=== PATIENT | male | born 1940 | race Caucasian/White ===

== ENCOUNTER 2021-04-27 04:10 | Emergency (ER) | payer MEDICARE, BC ==
[2021-04-27 05:02] LABS: Hematocrit 43.6 % (42-50); Hemoglobin 14.7 gm/dl (12.5-18.0); Mean Cell Volume 95.8 fl (78-100); Mean Corpuscular Hemoglobin 32.3 pg (26-32); Mean Corpuscular Hgb Concent. 33.7 g/dl (32-36); Mean Platelet Volume 10.4 fl (7.5-11.0); Platelet Count 295 K/mm3 (150-450); Red Blood Count 4.55 M/mm3 (4.1-5.6); White Blood Count 5.5 K/mm3 (4.0-10.5)
[2021-04-27 05:09] LABS: Appearance SLIGHTLY CLOUDY (CLEAR); Bilirubin NEGATIVE (NEGATIVE); Blood NEGATIVE Ery/ul (0-5); Glucose NEGATIVE (NEGATIVE); Ketones NEGATIVE (NEGATIVE); Leukocyte Esterase NEGATIVE (NEGATIVE); Mucus SLIGHT /HPF (NEGATIVE); Nitrite NEGATIVE (NEGATIVE); Protein,Urine Dip NEGATIVE (Negative); Specific Gravity 1.019 (1.005-1.025); Urobilinogen NEGATIVE mg/dL (0-1)
[2021-04-27 05:25] LABS: Amphetamine,Urine NEGATIVE (NEGATIVE); Barbiturate,Urine NEGATIVE (NEGATIVE); Benzodiazepine,Urine NEGATIVE (NEGATIVE); Cocaine,Urine NEGATIVE (NEGATIVE); Methadone,Urine NEGATIVE (NEGATIVE); Opiate,Urine NEGATIVE (NEGATIVE); PCP,Urine NEGATIVE (NEGATIVE); THC,Urine NEGATIVE (NEGATIVE)
--- NOTE | 2021-04-27 05:29 | ERPHSYRPT ---
- History of Present Illness Time Seen by Provider: 04/27/21 04:20 Source: patient Patient Subjective Stated Complaint: "I feel like I'm going a mile a minute." Triage Nursing Assessment: 80 y/o white male with only reported PMH of nasal polyps. He reported that he tested positive for COVID 19 on 04/22/21. He was prescribed amoxicillin and hydroxyzine. He has been taking the medications daily. The only presenting symptoms when he was tested was "I was going like a race horse." He denied headache, dizziness, visual disturbances, shorntess of breath, chest pain, palpitations, abdominal pain, indegestion, N/V/D, constipation, dysuria, hematuria, hematochezia. The patient's only complaint at this time is that he cannot calm down and go to sleep. Pupils 4mm bilateral with brisk reaction to light. Oral mucosa pink/moist without ulcerations or lesions. neck supple without JVD/lymphadenopathy. Symmetrical chest expansion. heart tones S1/S2 RRR without extra sounds. lungs vesicular with adequate airflow and no adventitious sounds. Abdomen soft non-distended, non-surgical, and without peritoneal signs. Bowel sounds present in all quadrants. No palpable organomegaly/pulsatile masses. Peripheral pulses +3 bilateral. No noted dependent edema. gait steady without complications. he is on room air and does not use nor has he required supplemental oxygen during the course of his treatment for COVID. Physician History: Patient is a 80-year-old male presents to emergency department for evaluation of feeling anxious and jittery. Patient states he cannot sleep. Patient is not sure why. Patient is currently on amoxicillin and hydroxyzine. These 2 medications were prescribed to patient on April 22 after he was tested positive for Covid. Since then patient has felt jittery and anxious. No chest pain or shortness of breath. No nausea vomiting or diaphoresis. Symptoms are mild to moderate in intensity. No specific worsening improving factors. Patient voices no other complaints concerns at this time. Timing/Duration: today Severity: mild Modifying Factors: Improves With: nothing Associated Symptoms: denies symptoms, No nausea, No vomiting, No shortness of breath, No diaphoresis, No chest pain, No fever, No headaches, No loss of appetite, No syncope, No seizure Allergies/Adverse Reactions: No Known Drug Allergies Allergy (Unverified 04/27/21 04:19) Home Medications: Amoxicillin 1,000 mg PO DAILY 04/27/21 [History] hydrOXYzine HCL [Hydroxyzine HCl] 10 mg PO Q8H PRN 04/27/21 [History] Hx Tetanus, Diphtheria Vaccination/Date Given: No Hx Influenza Vaccination/Date Given: No Travel Risk - International Travel Have you traveled outside of the country in past 3 weeks: No - Coronavirus Screening Are you exhibiting any of the following symptoms?: No Close contact with a COVID-19 positive Pt in past 14-21 Days: No - Vaccine Status Have you recieved a Covid-19 vaccination: No - Review of Systems Constitutional: No Symptoms, No Fever, No Chills Eyes: No Symptoms Ears, Nose, & Throat: No Symptoms Respiratory: No Symptoms, No Cough, No Dyspnea Cardiac: No Symptoms, No Chest Pain, No Edema, No Syncope Abdominal/Gastrointestinal: No Symptoms, No Abdominal Pain, No Nausea, No Vomiting, No Diarrhea Genitourinary Symptoms: No Symptoms, No Dysuria Musculoskeletal: No Symptoms, No Back Pain, No Neck Pain Skin: No Symptoms, No Rash Neurological: No Symptoms, No Dizziness, No Focal Weakness, No Sensory Changes Psychological: No Symptoms Endocrine: No Symptoms Hematologic/Lymphatic: No Symptoms Immunological/Allergic: No Symptoms All Other Systems: Reviewed and Negative - Past Medical History Pertinent Past Medical History: No - Past Surgical History Past Surgical History: Yes Other Surgical History: Nasal polyp removal - Social History Smoking Status: Current every day smoker Exposure to second hand smoke: No Drug Use: none Patient Lives Alone: No - Nursing Vital Signs Nursing Vital Signs: Initial Vital Signs Temperature 97.4 F 04/27/21 04:11 Pulse Rate 64 04/27/21 04:11 Respiratory Rate 18 04/27/21 04:11 Blood Pressure 158/89 04/27/21 04:11 O2 Sat by Pulse Oximetry 98 04/27/21 04:11 Pain Scale Pain Intensity 0 - Physical Exam General Appearance: no apparent distress, alert Eye Exam: PERRL/EOMI, eyes nml inspection Ears, Nose, Throat Exam: normal ENT inspection, TMs normal, pharynx normal, moist mucous membranes Neck Exam: normal inspection, non-tender, supple, full range of motion Respiratory Exam: normal breath sounds, lungs clear, airway intact, No respiratory distress Cardiovascular Exam: regular rate/rhythm, normal heart sounds, normal peripheral pulses Gastrointestinal/Abdomen Exam: soft, normal bowel sounds, No tenderness, No mass Back Exam: normal inspection, normal range of motion, No CVA tenderness, No vertebral tenderness Extremity Exam: normal inspection, normal range of motion, pelvis stable Neurologic Exam: alert, oriented x 3, cooperative, normal mood/affect, nml cerebellar function, nml station & gait, sensation nml, No motor deficits Skin Exam: normal color, warm, dry, No rash Lymphatic Exam: No adenopathy SpO2 Interpretation: normal SpO2: 96 O2 Delivery: Room Air - Course Nursing assessment & vital signs reviewed: Yes EKG Interpreted by Me: RATE (61), Sinus Rhythm, NORMAL AXIS, NORMAL INTERVALS - Radiology Exams Chest X-ray Interpretation: Interpreted by me (Bibasilar atelectasis. No infiltrate or consolidation. Otherwise clear lung harris. Bony thorax intact. Normal cardiac silhouette.) Ordered Tests: Active Orders 24 hr Category Date Time Status Communications Field Technician STAT Care 04/27/21 04:47 Active Clean Catch Urine Specimen STAT Care 04/27/21 04:55 Active EKG-ER Only STAT Care 04/27/21 04:45 Active IV Insertion STAT Care 04/27/21 04:45 Active CHEST 1 VIEW (PORTABLE) Stat Exams 04/27/21 05:04 Ordered CBC W DIFF Stat Lab 04/27/21 04:45 Completed CMP Stat Lab 04/27/21 04:45 Received Manual Differential NC Stat Lab 04/27/21 04:45 Completed TROPONIN Q3H Lab 04/27/21 04:45 Completed TROPONIN Q3H Lab 04/27/21 08:00 Ordered TROPONIN Q3H Lab 04/27/21 11:00 Ordered TROPONIN Q3H Lab 04/27/21 14:00 Ordered TROPONIN Q3H Lab 04/27/21 17:00 Ordered TROPONIN Q3H Lab 04/27/21 20:00 Ordered TROPONIN Q3H Lab 04/27/21 23:00 Ordered TSH, 3RD Generation Stat Lab 04/27/21 04:45 Received UA W/RFX UR CULTURE Stat Lab 04/27/21 04:50 Completed Urine Triage Profile Stat Lab 04/27/21 04:55 Completed Lab/Rad Data: Laboratory Result Diagrams 04/27/21 04:45 04/27/21 04:45 Laboratory Results 04/27/21 04/27/21 04/27/21 Range/Units 04:55 04:50 04:45 WBC (4.0-10.5) K/mm3 RBC (4.1-5.6) M/mm3 Hgb (12.5-18.0) gm/dl Hct (42-50) % MCV (78-100) fl MCH (26-32) pg MCHC (32-36) g/dl RDW (11.5-14.0) % Plt Count (150-450) K/mm3 MPV (7.5-11.0) fl Sodium (137-145) mmol/L Potassium (3.5-5.1) mmol/L Chloride (98-107) mmol/L Carbon Dioxide (22-30) mmol/L Anion Gap (5-15) MEQ/L BUN (9-20) mg/dL Creatinine (0.66-1.25) mg/dL Estimated GFR ML/MIN Glucose (74-106) mg/dL Calcium (8.4-10.2) mg/dL Total Bilirubin (0.2-1.3) mg/dL AST (17-59) U/L ALT (0-50) U/L Alkaline Phosphatase (38-126) U/L Troponin I < 0.012 (0.000-0.034) ng/mL Serum Total Protein (6.3-8.2) g/dL Albumin (3.5-5.0) g/dL TSH 3rd Generation (0.47-4.68) mIU/L Urine Color YELLOW (YELLOW) Urine Appearance SLIGHTLY CLOUDY (CLEAR) Urine pH 6.0 (5-6) Ur Specific [place] 1.019 (1.005-1.025) Urine Protein NEGATIVE (Negative) Urine Ketones NEGATIVE (NEGATIVE) Urine Blood NEGATIVE (0-5) Kana/ul Urine Nitrite NEGATIVE (NEGATIVE) Urine Bilirubin NEGATIVE (NEGATIVE) Urine Urobilinogen NEGATIVE (0-1) mg/dL Ur Leukocyte Esterase NEGATIVE (NEGATIVE) Urine WBC (Auto) 3-5 (0-5) /HPF Urine RBC (Auto) 16-25 (0-2) /HPF Calcium Oxalate Crystal 11-25 (NEGATIVE) /HPF Urine Mucus (Auto) SLIGHT (NEGATIVE) /HPF Urine Culture Reflexed NO (NO) Urine Glucose NEGATIVE (NEGATIVE) mg/dL Urine Opiates Level NEGATIVE (NEGATIVE) Ur Methadone NEGATIVE (NEGATIVE) Urine Barbiturates NEGATIVE (NEGATIVE) Ur Phencyclidine (PCP) NEGATIVE (NEGATIVE) Urine Amphetamine NEGATIVE (NEGATIVE) U Benzodiazepine Level NEGATIVE (NEGATIVE) Urine Cocaine NEGATIVE (NEGATIVE) Urine Marijuana (THC) NEGATIVE (NEGATIVE) 04/27/21 04/27/21 Range/Units 04:45 04:45 WBC 5.5 (4.0-10.5) K/mm3 RBC 4.55 (4.1-5.6) M/mm3 Hgb 14.7 (12.5-18.0) gm/dl Hct 43.6 (42-50) % MCV 95.8 (78-100) fl MCH 32.3 H (26-32) pg MCHC 33.7 (32-36) g/dl RDW 13.0 (11.5-14.0) % Plt Count 295 (150-450) K/mm3 MPV 10.4 (7.5-11.0) fl Sodium 142 (137-145) mmol/L Potassium 4.2 (3.5-5.1) mmol/L Chloride 104 (98-107) mmol/L Carbon Dioxide 31 H (22-30) mmol/L Anion Gap 12.5 (5-15) MEQ/L BUN 21 H (9-20) mg/dL Creatinine 0.68 (0.66-1.25) mg/dL Estimated GFR > 60.0 ML/MIN Glucose 103 (74-106) mg/dL Calcium 9.0 (8.4-10.2) mg/dL Total Bilirubin 0.60 (0.2-1.3) mg/dL AST 18 (17-59) U/L ALT 23 (0-50) U/L Alkaline Phosphatase 74 (38-126) U/L Troponin I (0.000-0.034) ng/mL Serum Total Protein 7.2 (6.3-8.2) g/dL Albumin 4.1 (3.5-5.0) g/dL TSH 3rd Generation 1.700 (0.47-4.68) mIU/L Urine Color (YELLOW) Urine Appearance (CLEAR) Urine pH (5-6) Ur Specific [place] (1.005-1.025) Urine Protein (Negative) Urine Ketones (NEGATIVE) Urine Blood (0-5) Kana/ul Urine Nitrite (NEGATIVE) Urine Bilirubin (NEGATIVE) Urine Urobilinogen (0-1) mg/dL Ur Leukocyte Esterase (NEGATIVE) Urine WBC (Auto) (0-5) /HPF Urine RBC (Auto) (0-2) /HPF Calcium Oxalate Crystal (NEGATIVE) /HPF Urine Mucus (Auto) (NEGATIVE) /HPF Urine Culture Reflexed (NO) Urine Glucose (NEGATIVE) mg/dL Urine Opiates Level (NEGATIVE) Ur Methadone (NEGATIVE) Urine Barbiturates (NEGATIVE) Ur Phencyclidine (PCP) (NEGATIVE) Urine Amphetamine (NEGATIVE) U Benzodiazepine Level (NEGATIVE) Urine Cocaine (NEGATIVE) Urine Marijuana (THC) (NEGATIVE) - Progress Progress: improved Progress Note: Patient's symptoms started shortly after he was prescribed hydroxyzine and amoxicillin. Amoxicillin may potentially cause insomnia anxiety, hyperactive behavior. We will discontinue these medications and reassess patient. No indication for further work-up. Laboratory work-up essentially nonremarkable. TSH within normal limits chest x-ray nonremarkable. Patient agrees to follow-up with his primary care doctor within 48 hours for reevaluation. Patient used to see Dr. Botello who is no longer with this at this time. Patient provided referral to Dr. Lopez, our on-call doctor for today. Patient voices no other complaints or concerns at this time. EKG was normal sinus rhythm. Vitals nonremarkable as well. Patient voices no other complaints or concerns at this time. 04/27/21 05:59 Portions of this note were created with voice recognition technology. There may be grammatical, spelling, punctuation or sound alike errors Counseled pt/family regarding: lab results, diagnosis, need for follow-up, rad results - Departure Departure Disposition: Home Clinical Impression: Jittery feeling, Adverse effect of amoxicillin Condition: Stable Critical Care Time: No Referrals: DOCTOR,NO FAMILY [Primary Care Provider] - Follow up/PCP as directed UGO ELIZABETH DO [ACTIVE STAFF] - Follow up/PCP as directed Additional Instructions: Discharge/Care Plan MARCELINO ALBRIGHT was seen on 04/27/21 in the Emergency Room. The patient was counseled regarding Diagnosis,Lab results, Imaging studies, need for follow up and when to return to the Emergency Room. Prescriptions given: Discharge Note I have spoken with the patient and/or caregivers. I have explained the patient's condition, diagnosis and treatment plan based on the information available to me at this time. I have answered the patient's and/or caregiver's questions and addressed any concerns. The patient and/or caregivers have as good understanding of the patient's diagnosis, condition and treatment plan as can be expected at this point. The vital signs have been stable. The patient's condition is stable and appropriate for discharge from the emergency department. The patient will pursue further outpatient evaluation with the primary care physician or other designated or consulting physician as outlined in the discharge instructions. The patient and/or caregivers are agreeable to this plan of care and follow-up instructions have been explained in detail. The patient and/or caregivers have received these instruction. The patient/and or caregivers are aware that any significant change in condition or worsening of symptoms should prompt an immediate return to this or the closest emergency department or call 911.
[2021-04-27 05:51] LABS: ALBUMIN 4.1 g/dL (3.5-5.0); ALKALINE PHOSPHATASE 74 U/L (38-126); ANION GAP 12.5 MEQ/L (5-15); BLOOD UREA NITROGEN 21 mg/dL (9-20); CHLORIDE 104 mmol/L (98-107); Carbon Dioxide 31 mmol/L (22-30); Creatinine 1 0.68 mg/dL (0.66-1.25); EST GLOMERULAR FILTRATION RATE > 60.0 ML/MIN; Glucose 103 mg/dL (74-106); Potassium 4.2 mmol/L (3.5-5.1); SGOT/AST 18 U/L (17-59); SGPT/ALT 23 U/L (0-50); SODIUM 142 mmol/L (137-145); Total Protein 7.2 g/dL (6.3-8.2)
[2021-04-27 06:05] VITALS: BP 148/85; PULSE 61; O2SAT 97
[2021-04-27 08:14] LABS: ATYPICAL LYMPHS 1 %; Lymphocytes 37 % (24-44); Monocyte 2 % (0.0-12.0); Neutrophils 60 % (36.-66.); Platelet Estimate NORMAL (NORMAL); Total Cells Counted 100
--- NOTE | 2021-04-27 09:12 | XRAY ---
Indication: Positive Covid 19. Comparison: April 22, 2021. Portable chest is clear with again incidental right hemidiaphragm elevation. Heart not enlarged again with tortuous descending aorta. No new/acute abnormalities.
== END 2021-04-27 06:20 | disposition home or self-care (01) ==
LOC: ED 04:10
DX: F41.9 Anxiety disorder, unspecified (principal); T36.0X5A Adverse effect of penicillins, initial encounter; U07.1 COVID-19; Z72.0 Tobacco use
CPT/HCPCS: 36000; 36415; 71045; 80053; 80307; 81001; 84443; 84484; 85025; 93005; 93041; 99284

== ENCOUNTER 2023-04-27 11:15 | Inpatient (IN) | payer MEDICARE, BC ==
[2023-04-27] MEDS ORDERED: Sodium Chloride 0.9% 1000 ML 1,000 ML ONE ×3 (11:39→13:33)
[2023-04-27] MEDS: Sodium Chloride 0.9% 1000 ML 1,000 ML IV STA ×3 (11:40→13:35)
--- NOTE | 2023-04-27 11:40 | ERPHSYRPT ---
- History of Present Illness Time Seen by Provider: 04/27/23 11:36 Source: patient Exam Limitations: no limitations Patient Subjective Stated Complaint: Patient is here for weakness. Patient fell at home today in the bathroom related to weakness. He indicates he began feeling bad on Monday and thought "I just had the flu." Triage Nursing Assessment: Patient came back to ER in a W/C. He is alert but hard of hearing. Nasal congestion noted. He has a dry, non-productive cough. Labored breathing noted at times; he denies SOB. Some abrasions noted to forehead; patient indicates these are from the fall this am but denies hitting his head. MARIE WNL. Patient is pale. Physician History: Patient is an 82-year-old white male who presents with a complaint of weakness. He began to feel sick on MondayOr sick for 4 days. He has had fever on and off up to 103 degrees he was exposed to flu reportedly by a coworker. He has had nasal congestion and a coughEven though he started feeling bad on Monday he actually felt better yesterday and then this morning felt worse and had a fall without loss of consciousness in the bathroom this morning.No significant injury.He apparently does not see his physician very frequently. Cough Quality/Degree: productive cough Allergies/Adverse Reactions: hydroxyzine Adverse Reaction (Mild, Verified 04/27/23 13:37) Rapid Heart Beat amoxicillin Adverse Reaction (Verified 04/27/23 11:21) Insomnia, Hyperactivity Home Medications: No Reportable Medications [No Reported Medications] 04/27/23 [History] Hx Tetanus, Diphtheria Vaccination/Date Given: No Hx Influenza Vaccination/Date Given: No Hx Pneumococcal Vaccination/Date Given: No Immunizations Up to Date: No Travel Risk - International Travel Have you traveled outside of the country in past 3 weeks: No - Coronavirus Screening Are you exhibiting any of the following symptoms?: Yes Symptoms: Fever, Cough: New Onset Close contact with a COVID-19 positive Pt in past 14-21 Days: No - Vaccine Status Have you recieved a Covid-19 vaccination: No - Review of Systems Constitutional: Fever, Chills Eyes: No Symptoms Ears, Nose, & Throat: Nose Congestion, Nose Discharge, Sinus Drainage Respiratory: Cough, Dyspnea Cardiac: No Chest Pain, No Edema, No Syncope Abdominal/Gastrointestinal: No Abdominal Pain, No Nausea, No Vomiting, No Diarrhea Genitourinary Symptoms: No Dysuria Musculoskeletal: No Back Pain, No Neck Pain Skin: No Rash Neurological: No Dizziness, No Focal Weakness, No Sensory Changes Psychological: No Symptoms Endocrine: No Symptoms All Other Systems: Reviewed and Negative - Past Medical History Pertinent Past Medical History: No - Past Surgical History Past Surgical History: Yes Other Surgical History: Nasal polyp removal - Social History Smoking Status: Current every day smoker Exposure to second hand smoke: No Drug Use: none Patient Lives Alone: No - Nursing Vital Signs Nursing Vital Signs: Initial Vital Signs Temperature 98.8 F 04/27/23 11:23 Pulse Rate 110 H 04/27/23 11:23 Respiratory Rate 32 H 04/27/23 11:23 Blood Pressure 140/86 04/27/23 11:23 O2 Sat by Pulse Oximetry 91 L 04/27/23 11:23 Pain Scale Pain Intensity 0 - Physical Exam General Appearance: mild distress, alert Eye Exam: PERRL/EOMI, eyes nml inspection Ears, Nose, Throat Exam: normal ENT inspection, TMs normal, pharynx normal, moist mucous membranes, other (Nasal congestion) Neck Exam: normal inspection, non-tender, supple, full range of motion Respiratory Exam: normal breath sounds, respiratory distress (Tachypnea respir atory rate 30 on exam), crackles/rales Cardiovascular Exam: regular rate/rhythm, normal heart sounds Gastrointestinal/Abdomen Exam: soft, No tenderness Back Exam: normal inspection, No CVA tenderness, No vertebral tenderness Extremity Exam: normal inspection, normal range of motion Neurologic Exam: alert, oriented x 3, cooperative, normal mood/affect, sensation nml, No motor deficits Skin Exam: normal color, warm, dry, No rash Lymphatic Exam: No adenopathy SpO2 Interpretation: normal SpO2: 91 O2 Delivery: Room Air - Course Nursing assessment & vital signs reviewed: Yes EKG Interpreted by Me: Sinus Tach, NORMAL AXIS, Non-specific ST Changes, Other (Left anterior fascicular block) - Radiology Exams Chest X-ray Interpretation: Reviewed by me, Other (Right perihilar airspace disease) Ordered Tests: Active Orders 24 hr Category Date Time Status EKG-ER Only STAT Care 04/27/23 11:29 Active IV Insertion STAT Care 04/27/23 11:29 Active CHEST 1 VIEW (PORTABLE) Stat Exams 04/27/23 11:31 Completed BLOOD CULTURE Stat Lab 04/27/23 11:40 Received CBC W DIFF Stat Lab 04/27/23 11:35 Completed CMP Stat Lab 04/27/23 11:35 Completed CULTURE,URINE Stat Lab 04/27/23 12:59 Received Erythrocyte Sedimentation Rate Stat Lab 04/27/23 12:13 Completed Lactic Acid Stat Lab 04/27/23 11:55 Completed Manual Differential NC Stat Lab 04/27/23 11:35 Completed NT PRO BNPII Stat Lab 04/27/23 11:30 Completed PROCALCITONIN Stat Lab 04/27/23 11:35 Completed UA W/RFX UR CULTURE Stat Lab 04/27/23 12:59 Completed Medication Summary Generic Name Dose Route Start Last Admin Trade Name Freq PRN Reason Stop Dose Admin Sodium Chloride 1,000 mls @ 999 mls/hr 04/27/23 13:33 04/27/23 13:35 Sodium Chloride 0.9% 1000 Ml IV 04/27/23 14:33 999 mls/hr .Q1H1M STA Administration Meropenem 1 gm/ Sodium 100 mls @ 200 mls/hr 04/27/23 13:57 Chloride IV 04/27/23 14:26 STAT ONE Discontinued Medications Generic Name Dose Route Start Last Admin Trade Name Freq PRN Reason Stop Dose Admin Aspirin 324 mg 04/27/23 12:13 04/27/23 12:19 Aspirin 81 Mg Tab.Chew PO 04/27/23 12:14 Not Given STAT ONE Sodium Chloride 1,000 mls @ 999 mls/hr 04/27/23 11:29 04/27/23 12:42 Sodium Chloride 0.9% 1000 Ml IV 04/27/23 12:29 Infused .Q1H1M STA Infusion Sodium Chloride Confirm 04/27/23 11:39 Sodium Chloride 0.9% 1000 Ml Administered 04/27/23 11:40 Dose 1,000 mls @ ud .ROUTE .STK-MED ONE Sodium Chloride 1,000 mls @ 999 mls/hr 04/27/23 12:50 04/27/23 13:55 Sodium Chloride 0.9% 1000 Ml IV 04/27/23 13:50 Infused .Q1H1M STA Infusion Sodium Chloride Confirm 04/27/23 12:50 Sodium Chloride 0.9% 1000 Ml Administered 04/27/23 12:51 Dose 1,000 mls @ ud .ROUTE .STK-MED ONE Sodium Chloride Confirm 04/27/23 13:33 Sodium Chloride 0.9% 1000 Ml Administered 04/27/23 13:34 Dose 1,000 mls @ ud .ROUTE .STK-MED ONE Nitroglycerin 0.4 mg 04/27/23 12:13 04/27/23 12:20 Nitroglycerin 0.4 Mg (Ed) 0.4 Mg Tab.Subl SL 04/27/23 12:14 Not Given STAT ONE Lab/Rad Data: Laboratory Result Diagrams 04/27/23 11:35 04/27/23 11:35 Laboratory Results 04/27/23 04/27/23 04/27/23 Range/Units 12:59 12:13 11:55 WBC (4.0-10.5) x10^3/uL RBC (4.1-5.6) x10^6/uL Hgb (12.5-18.0) g/dL Hct (42-50) % MCV (78-100) fL MCH (26-32) pg MCHC (32-36) g/dL RDW (11.5-14.0) % Plt Count (150-450) x10^3/uL MPV (7.5-11.0) fL Segmented Neutrophils (36.-66.) % Band Neutrophils (0.0-2.0) % Lymphocytes (Manual) (24-44) % Monocytes (Manual) (0.0-12.0) % Toxic Granulation Platelet Estimate (NORMAL) RBC Morphology ESR 87 H (0-15) mm/hr Sodium (137-145) mmol/L Potassium (3.5-5.1) mmol/L Chloride (98-107) mmol/L Carbon Dioxide (22-30) mmol/L Anion Gap (5-15) MEQ/L BUN (9-20) mg/dL Creatinine (0.66-1.25) mg/dL Estimated GFR ML/MIN Glucose (74-106) mg/dL Lactic Acid 2.5 H (0.4-2.0) Calcium (8.4-10.2) mg/dL Total Bilirubin (0.2-1.3) mg/dL AST (17-59) U/L ALT (0-50) U/L Alkaline Phosphatase (38-126) U/L NT-Pro-B Natriuret Pep (<300) pg/mL Serum Total Protein (6.3-8.2) g/dL Albumin (3.5-5.0) g/dL Procalcitonin (0.030-0.080) ng/mL Urine Color [place] A (Yellow) Urine Appearance Cloudy A (Clear) Urine pH 5.5 (4.6-8.0) Ur Specific Vivian >=1.030 A (1.005-1.030) Urine Protein 300 A (Negative) Urine Glucose (UA) 100 A (Negative) mg/dL Urine Ketones Trace A (Negative) Urine Blood Large A (Negative) Urine Nitrite Positive A (Negative) Urine Bilirubin Moderate A (Negative) Urine Urobilinogen >=8.0 A (0.2) mg/dL Ur Leukocyte Esterase Trace A (Negative) U Hyaline Cast (Auto) 3-5 A (0-2) /LPF Urine Microscopic RBC 6-10 A (0-5) /HPF Urine Microscopic WBC 0-2 (0-5) /HPF Ur Epithelial Cells Rare (None Seen) /HPF Urine Bacteria Few A (None Seen) /HPF Urine Culture Reflexed YES (NO) Influenza Type A Ag (NEGATIVE) Influenza Type B Ag (NEGATIVE) RSV (PCR) (NEGATIVE) SARS-CoV-2 (PCR) (NEGATIVE) Group A Strep Antibody (NEGATIVE) 04/27/23 04/27/23 04/27/23 Range/Units 11:42 11:42 11:35 WBC (4.0-10.5) x10^3/uL RBC (4.1-5.6) x10^6/uL Hgb (12.5-18.0) g/dL Hct (42-50) % MCV (78-100) fL MCH (26-32) pg MCHC (32-36) g/dL RDW (11.5-14.0) % Plt Count (150-450) x10^3/uL MPV (7.5-11.0) fL Segmented Neutrophils (36.-66.) % Band Neutrophils (0.0-2.0) % Lymphocytes (Manual) (24-44) % Monocytes (Manual) (0.0-12.0) % Toxic Granulation Platelet Estimate (NORMAL) RBC Morphology ESR (0-15) mm/hr Sodium 131 L (137-145) mmol/L Potassium 3.3 L (3.5-5.1) mmol/L Chloride 99 (98-107) mmol/L Carbon Dioxide 21 L (22-30) mmol/L Anion Gap 13.8 (5-15) MEQ/L BUN 26 H (9-20) mg/dL Creatinine 0.67 (0.66-1.25) mg/dL Estimated GFR 94.4 ML/MIN Glucose 156 H (74-106) mg/dL Lactic Acid (0.4-2.0) Calcium 9.1 (8.4-10.2) mg/dL Total Bilirubin 3.90 H (0.2-1.3) mg/dL AST 19 (17-59) U/L ALT 15 (0-50) U/L Alkaline Phosphatase 77 (38-126) U/L NT-Pro-B Natriuret Pep (<300) pg/mL Serum Total Protein 7.4 (6.3-8.2) g/dL Albumin 4.1 (3.5-5.0) g/dL Procalcitonin (0.030-0.080) ng/mL Urine Color (Yellow) Urine Appearance (Clear) Urine pH (4.6-8.0) Ur Specific Vivian (1.005-1.030) Urine Protein (Negative) Urine Glucose (UA) (Negative) mg/dL Urine Ketones (Negative) Urine Blood (Negative) Urine Nitrite (Negative) Urine Bilirubin (Negative) Urine Urobilinogen (0.2) mg/dL Ur Leukocyte Esterase (Negative) U Hyaline Cast (Auto) (0-2) /LPF Urine Microscopic RBC (0-5) /HPF Urine Microscopic WBC (0-5) /HPF Ur Epithelial Cells (None Seen) /HPF Urine Bacteria (None Seen) /HPF Urine Culture Reflexed (NO) Influenza Type A Ag NEGATIVE (NEGATIVE) Influenza Type B Ag NEGATIVE (NEGATIVE) RSV (PCR) NEGATIVE (NEGATIVE) SARS-CoV-2 (PCR) NEGATIVE (NEGATIVE) Group A Strep Antibody NOT DETECTED (NEGATIVE) 04/27/23 04/27/23 04/27/23 Range/Units 11:35 11:35 11:30 WBC 14.6 H (4.0-10.5) x10^3/uL RBC 4.11 (4.1-5.6) x10^6/uL Hgb 13.3 (12.5-18.0) g/dL Hct 38.4 L (42-50) % MCV 93.4 (78-100) fL MCH 32.4 H (26-32) pg MCHC 34.6 (32-36) g/dL RDW 12.3 (11.5-14.0) % Plt Count 204 (150-450) x10^3/uL MPV 10.0 (7.5-11.0) fL Segmented Neutrophils 90 H (36.-66.) % Band Neutrophils 5 H (0.0-2.0) % Lymphocytes (Manual) 2 L (24-44) % Monocytes (Manual) 3 (0.0-12.0) % Toxic Granulation 1+ Platelet Estimate NORMAL (NORMAL) RBC Morphology NORMAL ESR (0-15) mm/hr Sodium (137-145) mmol/L Potassium (3.5-5.1) mmol/L Chloride (98-107) mmol/L Carbon Dioxide (22-30) mmol/L Anion Gap (5-15) MEQ/L BUN (9-20) mg/dL Creatinine (0.66-1.25) mg/dL Estimated GFR ML/MIN Glucose (74-106) mg/dL Lactic Acid (0.4-2.0) Calcium (8.4-10.2) mg/dL Total Bilirubin (0.2-1.3) mg/dL AST (17-59) U/L ALT (0-50) U/L Alkaline Phosphatase (38-126) U/L NT-Pro-B Natriuret Pep 511 (<300) pg/mL Serum Total Protein (6.3-8.2) g/dL Albumin (3.5-5.0) g/dL Procalcitonin 3.660 H* (0.030-0.080) ng/mL Urine Color (Yellow) Urine Appearance (Clear) Urine pH (4.6-8.0) Ur Specific Vivian (1.005-1.030) Urine Protein (Negative) Urine Glucose (UA) (Negative) mg/dL Urine Ketones (Negative) Urine Blood (Negative) Urine Nitrite (Negative) Urine Bilirubin (Negative) Urine Urobilinogen (0.2) mg/dL Ur Leukocyte Esterase (Negative) U Hyaline Cast (Auto) (0-2) /LPF Urine Microscopic RBC (0-5) /HPF Urine Microscopic WBC (0-5) /HPF Ur Epithelial Cells (None Seen) /HPF Urine Bacteria (None Seen) /HPF Urine Culture Reflexed (NO) Influenza Type A Ag (NEGATIVE) Influenza Type B Ag (NEGATIVE) RSV (PCR) (NEGATIVE) SARS-CoV-2 (PCR) (NEGATIVE) Group A Strep Antibody (NEGATIVE) - Progress Progress: improved Air Movement: fair Blood Culture(s) Obtained: Yes Antibiotics given: Yes Discussed with : Lenard (Excepted for observation) Will see patient in: hospital (observation) Medical Desision Making - Independent Historian Additional History obtained from: Spouse - Discussion of managment Care discussed with:: hospitalist (Dr. Roberts) Reviewed:: Test results Agreed on:: Treatment plan, decision to admit Will see patient: in hospital - Diagnostic Testing Diagnostic test were ordered, analyzed, and reviewed by me: Yes Radiological Interpretation: Reviewed by me - Risk of complications The pt has a mod risk of morbidity or mortality based on: Need for prescription drug management - Departure Departure Disposition: Observation Clinical Impression: Right middle lobe pneumonia Condition: Fair Critical Care Time: No Referrals: DOCTOR,NO FAMILY [Primary Care Provider] - Follow up/PCP as directed Instructions: Pneumonia, Adult (DC)
[2023-04-27 11:55] LABS: Hematocrit 38.4 % (42-50); Hemoglobin 13.3 g/dL (12.5-18.0); Mean Cell Volume 93.4 fL (78-100); Mean Corpuscular Hemoglobin 32.4 pg (26-32); Mean Corpuscular Hgb Concent. 34.6 g/dL (32-36); Platelet Count 204 x10^3/uL (150-450); Red Blood Count 4.11 x10^6/uL (4.1-5.6); Red Cell Distribution Width 12.3 % (11.5-14.0); White Blood Count 14.6 x10^3/uL (4.0-10.5)
--- NOTE | 2023-04-27 11:56 | XRAY ---
Indication: Cough. Comparison: April 27, 2021 Portable chest demonstrates new right perihilar airspace disease on background of air bronchograms. Remaining heart and lungs unremarkable again with incidental right hemidiaphragm elevation. Bony thorax intact again with osteopenia and mild degenerative changes.
[2023-04-27 12:16] LABS: BAND 5 % (0.0-2.0); Lymphocytes 2 % (24-44); Monocyte 3 % (0.0-12.0); Neutrophils 90 % (36.-66.); Platelet Estimate NORMAL (NORMAL); Total Cells Counted 100; Toxic Granulation 1+
[2023-04-27] MEDS: BABY ASPIRIN 81 MG CHEW PO ONE (12:19)
[2023-04-27] MEDS: Nitrostat 0.4 MG (ED) SL ONE (12:20)
[2023-04-27 12:36] LABS: INFLUENZA A NEGATIVE (NEGATIVE); INFLUENZA B NEGATIVE (NEGATIVE); RESPIRATORY SYNCTIAL VIRUS NEGATIVE (NEGATIVE); SARS-CoV-2 Xpert Express NEGATIVE (NEGATIVE)
[2023-04-27 13:11] LABS: ADD URINE CULTURE? YES (NO); Appearance Cloudy (Clear); Bacteria Few /HPF (None Seen); Bilirubin Moderate (Negative); Blood Large (Negative); Epithelial Cells Rare /HPF (None Seen); Glucose, Urine 100 mg/dL (Negative); Ketones Trace (Negative); Leukocyte Esterase Trace (Negative); Nitrite Positive (Negative); Ph 5.5 (4.6-8.0); Protein,Urine Dip 300 (Negative); Specific Gravity >=1.030 (1.005-1.030); Urobilinogen >=8.0 mg/dL (0.2); WBC 0-2 /HPF (0-5)
[2023-04-27 13:37] LABS: ALBUMIN 4.1 g/dL (3.5-5.0); ANION GAP 13.8 MEQ/L (5-15); BILIRUBIN,TOTAL 3.9 mg/dL (0.2-1.3); Calcium 9.1 mg/dL (8.4-10.2); Creatinine 1 0.67 mg/dL (0.66-1.25); EST GLOMERULAR FILTRATION RATE 94.4 ML/MIN; Potassium 3.3 mmol/L (3.5-5.1); Total Protein 7.4 g/dL (6.3-8.2)
[2023-04-27] MEDS ORDERED: Merrem IV ONE (14:03)
[2023-04-27] MEDS ORDERED: Sodium Chloride 100ML MINI-BAG PLUS 100 ML IV ONE (14:03)
[2023-04-27] MEDS: Merrem 1 GM in Sodium Chloride 100ML MINI-BAG PLUS 100 ML IV ONE (14:07)
--- NOTE | 2023-04-27 16:00 | PCM.HP ---
History of Present Illness - Chief Complaint Chief Complaint: Right pneumonia Date: 04/27/23 History of Present Illness: is a 82 year old male with PMHX of daily smoker-( 4-5 cigars daily). He presented to the ER today with a complaint of weakness. He began to feel sick on Monday, sick for 4 days now. He has had fever on and off up to 103 degrees he was exposed to flu reportedly by a coworker. He has had nasal congestion and a cough. Even though he started feeling bad on Monday he actually felt better yesterday and then this morning felt worse and had a fall without loss of consciousness in the bathroom this morning. No significant injury. He apparently does not see his physician very frequently. UA shows UTI and ER reviewed CXR and started Merrem for pneumonia. K+ replaced on IP unit. Pt appears septic as lactic acid is elevated. IV fluid bouls x3 gave in ER. Procal elevated. Pt denies CP, SOB, abd. pain, N/V/D. - Review of Systems Constitutional: Fever, Fatigue, Weakness, No Chills Eyes: No Symptoms Ears, Nose, & Throat: No Symptoms Respiratory: No Cough, No Short Of Breath Cardiac: No Chest Pain, No Edema, No Syncope Abdominal/Gastrointestinal: No Abdominal Pain, No Nausea, No Vomiting, No Diarrhea Genitourinary Symptoms: No Dysuria Musculoskeletal: No Back Pain, No Neck Pain Skin: No Rash Neurological: No Dizziness, No Focal Weakness, No Sensory Changes Psychological: No Symptoms Endocrine: No Symptoms Hematologic/Lymphatic: No Symptoms Immunological/Allergic: No Symptoms Medications & Allergies Home Medications: Home Medication List Acetaminophen 500 mg [Tylenol Extra Strength 500 mg] 500 mg PO Q4H PRN PRN 04/27/23 [History Confirmed 04/27/23] Allergies/Adverse Reactions: Allergies Allergy/AdvReac Type Severity Reaction Status Date / Time hydroxyzine AdvReac Mild Rapid Verified 04/27/23 13:37 Heart Beat amoxicillin AdvReac Verified 04/27/23 11:21 - Past Medical History Past Medical History: No Neurological History: No Pertinent History ENT History: No Pertinent History Cardiac History: No Pertinent History Respiratory History: No Pertinent History Endocrine Medical History: No Pertinent History Musculoskelatal History: No Pertinent History GI Medical History: No Pertinent History History: No Pertinent History Pyscho-Social History: No Pertinent History Male Reproductive Disorders: No Pertinent History - Past Surgical History Past Surgical History: Yes Neuro Surgical History: No Pertinent History Cardiac History: No Pertinent History Respiratory Surgery: No Pertinent History GI Surgical History: Hernia Repair Genitourinary Surgical Hx: No Pertinent History Musculskeletal Surgical Hx: No Pertinent History Male Surgical History: No Pertinent History Other Surgical History: Nasal polyp removal - Social History Smoking Status: Current every day smoker Exposure to second hand smoke: No Alcohol: None Drug Use: none - Physical Exam Vital Signs: Vital Signs - 24 hr Temp Pulse Resp BP BP Pulse Ox 04/27/23 14:20 140/75 04/27/23 14:10 99 H 20 142/75 95 04/27/23 14:08 91 L 04/27/23 14:00 95 H 18 136/76 96 04/27/23 13:50 91 H 24 146/79 96 04/27/23 13:40 98 H 26 H 138/91 95 04/27/23 13:30 100 H 27 H 130/72 92 L 04/27/23 13:23 91 H 28 H 136/70 96 04/27/23 13:00 88 25 H 99/85 97 04/27/23 12:30 97 H 23 133/72 94 L 04/27/23 12:12 98 H 22 133/71 94 L 04/27/23 12:00 99 H 30 H 134/72 93 L 04/27/23 11:23 98.8 F 110 H 32 H 140/86 91 L General Appearance: no apparent distress, alert Neurologic Exam: alert, oriented x 3, cooperative, normal mood/affect, nml cerebellar function, nml station & gait, sensation nml, No motor deficits Eye Exam: PERRL/EOMI, eyes nml inspection Ears, Nose, Throat Exam: normal ENT inspection, TMs normal, pharynx normal, moist mucous membranes Neck Exam: normal inspection, non-tender, supple, full range of motion Respiratory Exam: normal breath sounds, lungs clear, No respiratory distress Cardiovascular Exam: regular rate/rhythm, normal heart sounds, normal peripheral pulses Gastrointestinal/Abdomen Exam: soft, normal bowel sounds, No tenderness, No mass Back Exam: normal inspection, normal range of motion, No CVA tenderness, No vertebral tenderness Extremity Exam: normal inspection, normal range of motion, pelvis stable Skin Exam: normal color, warm, dry, No rash Lymphatic Exam: No adenopathy Results - Labs Lab/Micro Results: Lab Results-Last 24 Hours 04/27/23 04/27/23 04/27/23 Range/Units 11:30 11:35 11:35 WBC 14.6 H (4.0-10.5) x10^3/uL RBC 4.11 (4.1-5.6) x10^6/uL Hgb 13.3 (12.5-18.0) g/dL Hct 38.4 L (42-50) % MCV 93.4 (78-100) fL MCH 32.4 H (26-32) pg MCHC 34.6 (32-36) g/dL RDW 12.3 (11.5-14.0) % Plt Count 204 (150-450) x10^3/uL MPV 10.0 (7.5-11.0) fL Segmented Neutrophils 90 H (36.-66.) % Band Neutrophils 5 H (0.0-2.0) % Lymphocytes (Manual) 2 L (24-44) % Monocytes (Manual) 3 (0.0-12.0) % Toxic Granulation 1+ Platelet Estimate NORMAL (NORMAL) RBC Morphology NORMAL ESR (0-15) mm/hr Sodium (137-145) mmol/L Potassium (3.5-5.1) mmol/L Chloride (98-107) mmol/L Carbon Dioxide (22-30) mmol/L Anion Gap (5-15) MEQ/L BUN (9-20) mg/dL Creatinine (0.66-1.25) mg/dL Estimated GFR ML/MIN Glucose (74-106) mg/dL Lactic Acid (0.4-2.0) Calcium (8.4-10.2) mg/dL Total Bilirubin (0.2-1.3) mg/dL AST (17-59) U/L ALT (0-50) U/L Alkaline Phosphatase (38-126) U/L NT-Pro-B Natriuret Pep 511 (<300) pg/mL Serum Total Protein (6.3-8.2) g/dL Albumin (3.5-5.0) g/dL Procalcitonin 3.660 H* (0.030-0.080) ng/mL Urine Color (Yellow) Urine Appearance (Clear) Urine pH (4.6-8.0) Ur Specific [place] (1.005-1.030) Urine Protein (Negative) Urine Glucose (UA) (Negative) mg/dL Urine Ketones (Negative) Urine Blood (Negative) Urine Nitrite (Negative) Urine Bilirubin (Negative) Urine Urobilinogen (0.2) mg/dL Ur Leukocyte Esterase (Negative) U Hyaline Cast (Auto) (0-2) /LPF Urine Microscopic RBC (0-5) /HPF Urine Microscopic WBC (0-5) /HPF Ur Epithelial Cells (None Seen) /HPF Urine Bacteria (None Seen) /HPF Urine Culture Reflexed (NO) Influenza Type A Ag (NEGATIVE) Influenza Type B Ag (NEGATIVE) RSV (PCR) (NEGATIVE) SARS-CoV-2 (PCR) (NEGATIVE) Group A Strep Antibody (NEGATIVE) 04/27/23 04/27/23 04/27/23 Range/Units 11:35 11:42 11:42 WBC (4.0-10.5) x10^3/uL RBC (4.1-5.6) x10^6/uL Hgb (12.5-18.0) g/dL Hct (42-50) % MCV (78-100) fL MCH (26-32) pg MCHC (32-36) g/dL RDW (11.5-14.0) % Plt Count (150-450) x10^3/uL MPV (7.5-11.0) fL Segmented Neutrophils (36.-66.) % Band Neutrophils (0.0-2.0) % Lymphocytes (Manual) (24-44) % Monocytes (Manual) (0.0-12.0) % Toxic Granulation Platelet Estimate (NORMAL) RBC Morphology ESR (0-15) mm/hr Sodium 131 L (137-145) mmol/L Potassium 3.3 L (3.5-5.1) mmol/L Chloride 99 (98-107) mmol/L Carbon Dioxide 21 L (22-30) mmol/L Anion Gap 13.8 (5-15) MEQ/L BUN 26 H (9-20) mg/dL Creatinine 0.67 (0.66-1.25) mg/dL Estimated GFR 94.4 ML/MIN Glucose 156 H (74-106) mg/dL Lactic Acid (0.4-2.0) Calcium 9.1 (8.4-10.2) mg/dL Total Bilirubin 3.90 H (0.2-1.3) mg/dL AST 19 (17-59) U/L ALT 15 (0-50) U/L Alkaline Phosphatase 77 (38-126) U/L NT-Pro-B Natriuret Pep (<300) pg/mL Serum Total Protein 7.4 (6.3-8.2) g/dL Albumin 4.1 (3.5-5.0) g/dL Procalcitonin (0.030-0.080) ng/mL Urine Color (Yellow) Urine Appearance (Clear) Urine pH (4.6-8.0) Ur Specific [place] (1.005-1.030) Urine Protein (Negative) Urine Glucose (UA) (Negative) mg/dL Urine Ketones (Negative) Urine Blood (Negative) Urine Nitrite (Negative) Urine Bilirubin (Negative) Urine Urobilinogen (0.2) mg/dL Ur Leukocyte Esterase (Negative) U Hyaline Cast (Auto) (0-2) /LPF Urine Microscopic RBC (0-5) /HPF Urine Microscopic WBC (0-5) /HPF Ur Epithelial Cells (None Seen) /HPF Urine Bacteria (None Seen) /HPF Urine Culture Reflexed (NO) Influenza Type A Ag NEGATIVE (NEGATIVE) Influenza Type B Ag NEGATIVE (NEGATIVE) RSV (PCR) NEGATIVE (NEGATIVE) SARS-CoV-2 (PCR) NEGATIVE (NEGATIVE) Group A Strep Antibody NOT DETECTED (NEGATIVE) 04/27/23 04/27/23 04/27/23 Range/Units 11:55 12:13 12:59 WBC (4.0-10.5) x10^3/uL RBC (4.1-5.6) x10^6/uL Hgb (12.5-18.0) g/dL Hct (42-50) % MCV (78-100) fL MCH (26-32) pg MCHC (32-36) g/dL RDW (11.5-14.0) % Plt Count (150-450) x10^3/uL MPV (7.5-11.0) fL Segmented Neutrophils (36.-66.) % Band Neutrophils (0.0-2.0) % Lymphocytes (Manual) (24-44) % Monocytes (Manual) (0.0-12.0) % Toxic Granulation Platelet Estimate (NORMAL) RBC Morphology ESR 87 H (0-15) mm/hr Sodium (137-145) mmol/L Potassium (3.5-5.1) mmol/L Chloride (98-107) mmol/L Carbon Dioxide (22-30) mmol/L Anion Gap (5-15) MEQ/L BUN (9-20) mg/dL Creatinine (0.66-1.25) mg/dL Estimated GFR ML/MIN Glucose (74-106) mg/dL Lactic Acid 2.5 H (0.4-2.0) Calcium (8.4-10.2) mg/dL Total Bilirubin (0.2-1.3) mg/dL AST (17-59) U/L ALT (0-50) U/L Alkaline Phosphatase (38-126) U/L NT-Pro-B Natriuret Pep (<300) pg/mL Serum Total Protein (6.3-8.2) g/dL Albumin (3.5-5.0) g/dL Procalcitonin (0.030-0.080) ng/mL Urine Color [place] A (Yellow) Urine Appearance Cloudy A (Clear) Urine pH 5.5 (4.6-8.0) Ur Specific [place] >=1.030 A (1.005-1.030) Urine Protein 300 A (Negative) Urine Glucose (UA) 100 A (Negative) mg/dL Urine Ketones Trace A (Negative) Urine Blood Large A (Negative) Urine Nitrite Positive A (Negative) Urine Bilirubin Moderate A (Negative) Urine Urobilinogen >=8.0 A (0.2) mg/dL Ur Leukocyte Esterase Trace A (Negative) U Hyaline Cast (Auto) 3-5 A (0-2) /LPF Urine Microscopic RBC 6-10 A (0-5) /HPF Urine Microscopic WBC 0-2 (0-5) /HPF Ur Epithelial Cells Rare (None Seen) /HPF Urine Bacteria Few A (None Seen) /HPF Urine Culture Reflexed YES (NO) Influenza Type A Ag (NEGATIVE) Influenza Type B Ag (NEGATIVE) RSV (PCR) (NEGATIVE) SARS-CoV-2 (PCR) (NEGATIVE) Group A Strep Antibody (NEGATIVE) 02/15/24 Range/Units 14:08 WBC (4.0-10.5) x10^3/uL RBC (4.1-5.6) x10^6/uL Hgb (12.5-18.0) g/dL Hct (42-50) % MCV (78-100) fL MCH (26-32) pg MCHC (32-36) g/dL RDW (11.5-14.0) % Plt Count (150-450) x10^3/uL MPV (7.5-11.0) fL Segmented Neutrophils (36.-66.) % Band Neutrophils (0.0-2.0) % Lymphocytes (Manual) (24-44) % Monocytes (Manual) (0.0-12.0) % Toxic Granulation Platelet Estimate (NORMAL) RBC Morphology ESR (0-15) mm/hr Sodium (137-145) mmol/L Potassium (3.5-5.1) mmol/L Chloride (98-107) mmol/L Carbon Dioxide (22-30) mmol/L Anion Gap (5-15) MEQ/L BUN (9-20) mg/dL Creatinine (0.66-1.25) mg/dL Estimated GFR ML/MIN Glucose (74-106) mg/dL Lactic Acid 2.1 H (0.4-2.0) Calcium (8.4-10.2) mg/dL Total Bilirubin (0.2-1.3) mg/dL AST (17-59) U/L ALT (0-50) U/L Alkaline Phosphatase (38-126) U/L NT-Pro-B Natriuret Pep (<300) pg/mL Serum Total Protein (6.3-8.2) g/dL Albumin (3.5-5.0) g/dL Procalcitonin (0.030-0.080) ng/mL Urine Color (Yellow) Urine Appearance (Clear) Urine pH (4.6-8.0) Ur Specific [place] (1.005-1.030) Urine Protein (Negative) Urine Glucose (UA) (Negative) mg/dL Urine Ketones (Negative) Urine Blood (Negative) Urine Nitrite (Negative) Urine Bilirubin (Negative) Urine Urobilinogen (0.2) mg/dL Ur Leukocyte Esterase (Negative) U Hyaline Cast (Auto) (0-2) /LPF Urine Microscopic RBC (0-5) /HPF Urine Microscopic WBC (0-5) /HPF Ur Epithelial Cells (None Seen) /HPF Urine Bacteria (None Seen) /HPF Urine Culture Reflexed (NO) Influenza Type A Ag (NEGATIVE) Influenza Type B Ag (NEGATIVE) RSV (PCR) (NEGATIVE) SARS-CoV-2 (PCR) (NEGATIVE) Group A Strep Antibody (NEGATIVE) - Radiology Impressions Radiology Exams & Impressions: Radiology Procedures Category Date Time Status CHEST 1 VIEW (PORTABLE) Stat Exams 04/27/23 11:31 Completed Assessment/Plan (1) Sepsis Current Visit: Yes Status: Acute Assessment & Plan: - 2/2 UTI, pneumonia - Lactic acid 2.5 @ 11:55, 2.1 @1408- Fluid bolus x3 gave in ER - procal 3.660 (2) Right middle lobe pneumonia Current Visit: Yes Status: Acute Assessment & Plan: - CXR 04/27 Portable chest demonstrates new right perihilar airspace disease on background of air bronchograms. Remaining heart and lungs unremarkable again with incidental right hemidiaphragm elevation. Bony thorax intact again with osteopenia and mild degenerative changes - Merrem started in ER- continue Code(s): J18.9 - PNEUMONIA, UNSPECIFIED ORGANISM (3) Weakness Current Visit: Yes Status: Acute Assessment & Plan: -pt/ot Eval Code(s): R53.1 - WEAKNESS (4) UTI (urinary tract infection) Current Visit: Yes Status: Acute Assessment & Plan: - merrem gave in ER- continue - UC pending Code(s): N39.0 - URINARY TRACT INFECTION, SITE NOT SPECIFIED (5) Elevated d-dimer Current Visit: Yes Status: Acute Assessment & Plan: - D-Dimer 4.95 - CTA pending Code(s): R79.89 - OTHER SPECIFIED ABNORMAL FINDINGS OF BLOOD CHEMISTRY (6) Smoker Current Visit: Yes Status: Chronic Assessment & Plan: - advised cessation - nicotine patch VTE: Lovenox Next of kin: D/C plan: 2-3 days Code status: full Code(s): F17.200 - NICOTINE DEPENDENCE, UNSPECIFIED, UNCOMPLICATED
[2023-04-27] MEDS: Nicoderm CQ 21 MG TOP SCH (16:21)
[2023-04-27] MEDS: Klor Con PO SCH (16:21)
[2023-04-27] MEDS ORDERED: TYLENOL 325 MG PO PRN (17:29)
[2023-04-27] MEDS: Sodium Chloride 0.9% 1000 ML 1,000 ML IV SCH (18:26)
[2023-04-28 05:46] LABS: Hemoglobin 10.9 g/dL (12.5-18.0); Mean Cell Volume 93.8 fL (78-100); Mean Corpuscular Hgb Concent. 34.1 g/dL (32-36); Mean Platelet Volume 10.2 fL (7.5-11.0); Platelet Count 189 x10^3/uL (150-450); Red Blood Count 3.41 x10^6/uL (4.1-5.6); Red Cell Distribution Width 12.5 % (11.5-14.0); White Blood Count 14.1 x10^3/uL (4.0-10.5)
[2023-04-28 05:47] LABS: ALBUMIN 2.9 g/dL (3.5-5.0); ANION GAP 6.7 MEQ/L (5-15); BILIRUBIN,TOTAL 1.8 mg/dL (0.2-1.3); Calcium 8.1 mg/dL (8.4-10.2); Creatinine 1 0.51 mg/dL (0.66-1.25); EST GLOMERULAR FILTRATION RATE 102.5 ML/MIN; Potassium 3.6 mmol/L (3.5-5.1); Total Protein 5.6 g/dL (6.3-8.2)
[2023-04-28] MEDS: Merrem 1 GM in Sodium Chloride 100ML MINI-BAG PLUS 100 ML IV SCH (08:41)
--- NOTE | 2023-04-28 08:41 | XRAY ---
Indication: Elevated d-dimer. Multiple contiguous axial images obtained through the chest using 80 cc Isovue 370 contrast and PE protocol. Comparison: None Good opacification of the pulmonary arteries to include the lobar and segmental branches. Mild diffuse respiration artifact. No pulmonary embolus. Heart not enlarged. Aorta is mildly arteriosclerotic without aneurysm/dissection. No pathologic mediastinal/hilar lymphadenopathy. Small hiatal hernia. Midesophagus demonstrates presumed recent ingested medication/pill. Lungs demonstrates moderate right lower lobe consolidating/nonconsolidating airspace disease with tiny effusion. Lesser patchy consolidating/nonconsolidating airspace disease remaining lungs bilaterally. Bony thorax intact with osteopenia and moderate degenerative changes throughout spine. Limited upper abdomen demonstrates fatty liver. Impression: 1. Respiration artifact. No pulmonary embolus. 2. Diffuse scattered bilateral consolidating/nonconsolidating airspace disease greatest right lower lobe with tiny right effusion. 3. Incidental small hiatal hernia, fatty liver, and chronic bony findings.
[2023-04-28] MEDS: ENOXAPARIN SODIUM SQ SCH (10:00)
[2023-04-28] MEDS: Flonase NASAL NS SCH (11:33)
--- NOTE | 2023-04-28 13:00 | PCM.NOTE ---
Date and Time: 04/28/23 1251 Subjective Assessment: 04/27/23 is a 82 year old male with PMHX of daily smoker-( 4-5 cigars daily). He presented to the ER today with a complaint of weakness. He began to feel sick on Monday, sick for 4 days now. He has had fever on and off up to 103 degrees he was exposed to flu reportedly by a coworker. He has had nasal congestion and a cough. Even though he started feeling bad on Monday he actually felt better yesterday and then this morning felt worse and had a fall without loss of consciousness in the bathroom this morning. No significant injury. He apparently does not see his physician very frequently. UA shows UTI and ER reviewed CXR and started Merrem for pneumonia. K+ replaced on IP unit. Pt appears septic as lactic acid is elevated. IV fluid bouls x3 gave in ER. Procal elevated. Pt denies CP, SOB, abd. pain, N/V/D. 04/28/23 Pt resting in bed. He explains he does not feel well and does not want to go home today. Discussed labs and that at this time we do not feel he is ready to d/c. Leukocytosis has improved. BC x2 positive, sensitivity pending. Pt asks that flonase be added for his nasal congestion. Pt explains he feels weak, PT/OT ordered. He denies CP, SOB, abd. pain, N/V/D. - Review of Systems Constitutional: Weakness, No Fever, No Chills Eyes: No Symptoms Ears, Nose, & Throat: No Symptoms Respiratory: No Cough, No Short Of Breath Cardiac: No Chest Pain, No Edema, No Syncope Abdominal/Gastrointestinal: No Abdominal Pain, No Nausea, No Vomiting, No Diarrhea Genitourinary Symptoms: No Dysuria Musculoskeletal: No Back Pain, No Neck Pain Skin: No Rash Neurological: No Dizziness, No Focal Weakness, No Sensory Changes Psychological: No Symptoms Endocrine: No Symptoms Hematologic/Lymphatic: No Symptoms Immunological/Allergic: No Symptoms Objective Exam General Appearance: no apparent distress, alert Neurologic Exam: alert, oriented x 3, cooperative, normal mood/affect, nml cerebellar function, sensation nml, No motor deficits Skin Exam: normal color, warm, dry Eye Exam: PERRL, EOMI, eyes nml inspection Ears, Nose, Throat Exam: normal ENT inspection, pharynx normal, moist mucous membranes Neck Exam: normal inspection, non-tender, supple, full range of motion Respiratory Exam: normal breath sounds, lungs clear, No respiratory distress Cardiovascular Exam: regular rate/rhythm, normal heart sounds Gastrointestinal/Abdomen Exam: soft, No tenderness, No mass Extremity Exam: normal inspection, normal range of motion Back Exam: normal inspection, normal range of motion, No CVA tenderness, No vertebral tenderness Male Genitalia Exam: deferred Rectal Exam: deferred OBJECTIVE DATA Vital Signs: Vital Signs - 24 hr Temp Pulse Resp BP BP Pulse Ox 04/28/23 12:00 97.5 F 72 18 157/84 95 04/28/23 08:00 97.6 F 68 18 163/76 97 04/28/23 04:00 97.8 F 71 18 156/75 94 L 04/27/23 23:54 98.8 F 79 20 140/77 93 L 04/27/23 20:00 98.6 F 88 24 149/70 93 L 04/27/23 15:38 98.3 F 97 H 20 146/78 95 04/27/23 14:20 140/75 04/27/23 14:10 99 H 20 142/75 95 04/27/23 14:08 91 L 04/27/23 14:00 95 H 18 136/76 96 04/27/23 13:50 91 H 24 146/79 96 04/27/23 13:40 98 H 26 H 138/91 95 04/27/23 13:30 100 H 27 H 130/72 92 L 04/27/23 13:23 91 H 28 H 136/70 96 04/27/23 13:00 88 25 H 99/85 97 Pain Assessment - Last Documented Pain Intensity 0 Intake and Output: Intake & Output 04/26/23 04/27/23 04/28/23 04/29/23 11:59 11:59 11:59 11:59 Intake Total 1860 Balance 1860 Weight 79.2 kg 81.3 kg Lab Results: Lab Results-Last 24 Hours 04/27/23 04/27/23 04/27/23 Range/Units 11:30 11:35 11:35 WBC (4.0-10.5) x10^3/uL RBC (4.1-5.6) x10^6/uL Hgb (12.5-18.0) g/dL Hct (42-50) % MCV (78-100) fL MCH (26-32) pg MCHC (32-36) g/dL RDW (11.5-14.0) % Plt Count (150-450) x10^3/uL MPV (7.5-11.0) fL ESR (0-15) mm/hr D-Dimer 4.95 H* (0.0-0.50) mg/L Sodium 131 L (137-145) mmol/L Potassium 3.3 L (3.5-5.1) mmol/L Chloride 99 (98-107) mmol/L Carbon Dioxide 21 L (22-30) mmol/L Anion Gap 13.8 (5-15) MEQ/L BUN 26 H (9-20) mg/dL Creatinine 0.67 (0.66-1.25) mg/dL Estimated GFR 94.4 ML/MIN Glucose 156 H (74-106) mg/dL Lactic Acid (0.4-2.0) Calcium 9.1 (8.4-10.2) mg/dL Magnesium (1.6-2.3) mg/dL Total Bilirubin 3.90 H (0.2-1.3) mg/dL AST 19 (17-59) U/L ALT 15 (0-50) U/L Alkaline Phosphatase 77 (38-126) U/L NT-Pro-B Natriuret Pep 511 (<300) pg/mL Serum Total Protein 7.4 (6.3-8.2) g/dL Albumin 4.1 (3.5-5.0) g/dL Urine Color (Yellow) Urine Appearance (Clear) Urine pH (4.6-8.0) Ur Specific [place] (1.005-1.030) Urine Protein (Negative) Urine Glucose (UA) (Negative) mg/dL Urine Ketones (Negative) Urine Blood (Negative) Urine Nitrite (Negative) Urine Bilirubin (Negative) Urine Urobilinogen (0.2) mg/dL Ur Leukocyte Esterase (Negative) U Hyaline Cast (Auto) (0-2) /LPF Urine Microscopic RBC (0-5) /HPF Urine Microscopic WBC (0-5) /HPF Ur Epithelial Cells (None Seen) /HPF Urine Bacteria (None Seen) /HPF Urine Culture Reflexed (NO) Influenza Type A Ag (NEGATIVE) Influenza Type B Ag (NEGATIVE) RSV (PCR) (NEGATIVE) SARS-CoV-2 (PCR) (NEGATIVE) Group A Strep Antibody (NEGATIVE) 04/27/23 04/27/23 04/27/23 Range/Units 11:42 11:42 12:13 WBC (4.0-10.5) x10^3/uL RBC (4.1-5.6) x10^6/uL Hgb (12.5-18.0) g/dL Hct (42-50) % MCV (78-100) fL MCH (26-32) pg MCHC (32-36) g/dL RDW (11.5-14.0) % Plt Count (150-450) x10^3/uL MPV (7.5-11.0) fL ESR 87 H (0-15) mm/hr D-Dimer (0.0-0.50) mg/L Sodium (137-145) mmol/L Potassium (3.5-5.1) mmol/L Chloride (98-107) mmol/L Carbon Dioxide (22-30) mmol/L Anion Gap (5-15) MEQ/L BUN (9-20) mg/dL Creatinine (0.66-1.25) mg/dL Estimated GFR ML/MIN Glucose (74-106) mg/dL Lactic Acid (0.4-2.0) Calcium (8.4-10.2) mg/dL Magnesium (1.6-2.3) mg/dL Total Bilirubin (0.2-1.3) mg/dL AST (17-59) U/L ALT (0-50) U/L Alkaline Phosphatase (38-126) U/L NT-Pro-B Natriuret Pep (<300) pg/mL Serum Total Protein (6.3-8.2) g/dL Albumin (3.5-5.0) g/dL Urine Color (Yellow) Urine Appearance (Clear) Urine pH (4.6-8.0) Ur Specific [place] (1.005-1.030) Urine Protein (Negative) Urine Glucose (UA) (Negative) mg/dL Urine Ketones (Negative) Urine Blood (Negative) Urine Nitrite (Negative) Urine Bilirubin (Negative) Urine Urobilinogen (0.2) mg/dL Ur Leukocyte Esterase (Negative) U Hyaline Cast (Auto) (0-2) /LPF Urine Microscopic RBC (0-5) /HPF Urine Microscopic WBC (0-5) /HPF Ur Epithelial Cells (None Seen) /HPF Urine Bacteria (None Seen) /HPF Urine Culture Reflexed (NO) Influenza Type A Ag NEGATIVE (NEGATIVE) Influenza Type B Ag NEGATIVE (NEGATIVE) RSV (PCR) NEGATIVE (NEGATIVE) SARS-CoV-2 (PCR) NEGATIVE (NEGATIVE) Group A Strep Antibody NOT DETECTED (NEGATIVE) 04/27/23 04/27/23 04/27/23 Range/Units 12:59 14:08 17:51 WBC (4.0-10.5) x10^3/uL RBC (4.1-5.6) x10^6/uL Hgb (12.5-18.0) g/dL Hct (42-50) % MCV (78-100) fL MCH (26-32) pg MCHC (32-36) g/dL RDW (11.5-14.0) % Plt Count (150-450) x10^3/uL MPV (7.5-11.0) fL ESR (0-15) mm/hr D-Dimer (0.0-0.50) mg/L Sodium (137-145) mmol/L Potassium (3.5-5.1) mmol/L Chloride (98-107) mmol/L Carbon Dioxide (22-30) mmol/L Anion Gap (5-15) MEQ/L BUN (9-20) mg/dL Creatinine (0.66-1.25) mg/dL Estimated GFR ML/MIN Glucose (74-106) mg/dL Lactic Acid 2.1 H 1.3 (0.4-2.0) Calcium (8.4-10.2) mg/dL Magnesium (1.6-2.3) mg/dL Total Bilirubin (0.2-1.3) mg/dL AST (17-59) U/L ALT (0-50) U/L Alkaline Phosphatase (38-126) U/L NT-Pro-B Natriuret Pep (<300) pg/mL Serum Total Protein (6.3-8.2) g/dL Albumin (3.5-5.0) g/dL Urine Color [place] A (Yellow) Urine Appearance Cloudy A (Clear) Urine pH 5.5 (4.6-8.0) Ur Specific [place] >=1.030 A (1.005-1.030) Urine Protein 300 A (Negative) Urine Glucose (UA) 100 A (Negative) mg/dL Urine Ketones Trace A (Negative) Urine Blood Large A (Negative) Urine Nitrite Positive A (Negative) Urine Bilirubin Moderate A (Negative) Urine Urobilinogen >=8.0 A (0.2) mg/dL Ur Leukocyte Esterase Trace A (Negative) U Hyaline Cast (Auto) 3-5 A (0-2) /LPF Urine Microscopic RBC 6-10 A (0-5) /HPF Urine Microscopic WBC 0-2 (0-5) /HPF Ur Epithelial Cells Rare (None Seen) /HPF Urine Bacteria Few A (None Seen) /HPF Urine Culture Reflexed YES (NO) Influenza Type A Ag (NEGATIVE) Influenza Type B Ag (NEGATIVE) RSV (PCR) (NEGATIVE) SARS-CoV-2 (PCR) (NEGATIVE) Group A Strep Antibody (NEGATIVE) 04/28/23 04/28/23 04/28/23 Range/Units 04:59 04:59 04:59 WBC 14.1 H (4.0-10.5) x10^3/uL RBC 3.41 L (4.1-5.6) x10^6/uL Hgb 10.9 L (12.5-18.0) g/dL Hct 32.0 L (42-50) % MCV 93.8 (78-100) fL MCH 32.0 (26-32) pg MCHC 34.1 (32-36) g/dL RDW 12.5 (11.5-14.0) % Plt Count 189 (150-450) x10^3/uL MPV 10.2 (7.5-11.0) fL ESR (0-15) mm/hr D-Dimer (0.0-0.50) mg/L Sodium 131 L (137-145) mmol/L Potassium 3.6 (3.5-5.1) mmol/L Chloride 104 (98-107) mmol/L Carbon Dioxide 24 (22-30) mmol/L Anion Gap 6.7 (5-15) MEQ/L BUN 20 (9-20) mg/dL Creatinine 0.51 L (0.66-1.25) mg/dL Estimated GFR 102.5 ML/MIN Glucose 110 H (74-106) mg/dL Lactic Acid (0.4-2.0) Calcium 8.1 L (8.4-10.2) mg/dL Magnesium 2.0 (1.6-2.3) mg/dL Total Bilirubin 1.80 H (0.2-1.3) mg/dL AST 24 (17-59) U/L ALT 15 (0-50) U/L Alkaline Phosphatase 62 (38-126) U/L NT-Pro-B Natriuret Pep (<300) pg/mL Serum Total Protein 5.6 L (6.3-8.2) g/dL Albumin 2.9 L (3.5-5.0) g/dL Urine Color (Yellow) Urine Appearance (Clear) Urine pH (4.6-8.0) Ur Specific [place] (1.005-1.030) Urine Protein (Negative) Urine Glucose (UA) (Negative) mg/dL Urine Ketones (Negative) Urine Blood (Negative) Urine Nitrite (Negative) Urine Bilirubin (Negative) Urine Urobilinogen (0.2) mg/dL Ur Leukocyte Esterase (Negative) U Hyaline Cast (Auto) (0-2) /LPF Urine Microscopic RBC (0-5) /HPF Urine Microscopic WBC (0-5) /HPF Ur Epithelial Cells (None Seen) /HPF Urine Bacteria (None Seen) /HPF Urine Culture Reflexed (NO) Influenza Type A Ag (NEGATIVE) Influenza Type B Ag (NEGATIVE) RSV (PCR) (NEGATIVE) SARS-CoV-2 (PCR) (NEGATIVE) Group A Strep Antibody (NEGATIVE) Radiology Exams: Radiology Procedures Category Date Time Status CHEST 1 VIEW (PORTABLE) Stat Exams 04/27/23 11:31 Completed CHEST WITH CONTRAST [CT] Stat Exams 04/27/23 16:41 Completed Assessment/Plan (1) Sepsis Current Visit: Yes Status: Acute (2) Right middle lobe pneumonia Current Visit: Yes Status: Acute Code(s): J18.9 - PNEUMONIA, UNSPECIFIED ORGANISM (3) Weakness Current Visit: Yes Status: Acute Code(s): R53.1 - WEAKNESS (4) UTI (urinary tract infection) Current Visit: Yes Status: Acute Code(s): N39.0 - URINARY TRACT INFECTION, SITE NOT SPECIFIED (5) Elevated d-dimer Current Visit: Yes Status: Acute Code(s): R79.89 - OTHER SPECIFIED ABNORMAL FINDINGS OF BLOOD CHEMISTRY (6) Smoker Current Visit: Yes Status: Chronic Assessment & Plan: (1) Sepsis Current Visit: Yes Status: Acute Assessment & Plan: - 04/14 UTI, pneumonia - Lactic acid 2.5 @ 11:55, 2.1 @1408- Fluid bolus x3 gave in ER - procal 3.660 04/28 - BC X2 gram negative rods and gram + cocci- sensitivity pending - Lactic acid WNL - WBC 14.1- improved (2) Right middle lobe pneumonia Current Visit: Yes Status: Acute Assessment & Plan: - CXR 04/27 Portable chest demonstrates new right perihilar airspace disease on background of air bronchograms. Remaining heart and lungs unremarkable again with incidental right hemidiaphragm elevation. Bony thorax intact again with osteopenia and mild degenerative changes - Merrem started in ER- continue Q8hr 04/28 - CTA 04/27 Impression: 1. Respiration artifact. No pulmonary embolus. 2. Diffuse scattered bilateral consolidating/nonconsolidating airspace disease greatest right lower lobe with tiny right effusion. 3. Incidental small hiatal hernia, fatty liver, and chronic bony findings. Code(s): J18.9 - PNEUMONIA, UNSPECIFIED ORGANISM (3) Weakness Current Visit: Yes Status: Acute Assessment & Plan: -pt/ot Eval 04/28 - Continued weakness Code(s): R53.1 - WEAKNESS (4) UTI (urinary tract infection) Current Visit: Yes Status: Acute Assessment & Plan: - merrem gave in ER- continue - UC pending 04/28 - UC - no growth to date Code(s): N39.0 - URINARY TRACT INFECTION, SITE NOT SPECIFIED (5) Elevated d-dimer Current Visit: Yes Status: Acute Assessment & Plan: - D-Dimer 4.95 - CTA - reviewed, negative for PE Code(s): R79.89 - OTHER SPECIFIED ABNORMAL FINDINGS OF BLOOD CHEMISTRY (6) Smoker Current Visit: Yes Status: Chronic Assessment & Plan: - advised cessation - nicotine patch VTE: Lovenox Next of kin: D/C plan: 2-3 days Code status: full Code(s): F17.200 - NICOTINE DEPENDENCE, UNSPECIFIED, UNCOMPLICATED
[2023-04-29 09:15] LABS: Hematocrit 35.3 % (42-50); Hemoglobin 12.2 g/dL (12.5-18.0); Mean Cell Volume 93.6 fL (78-100); Mean Corpuscular Hemoglobin 32.4 pg (26-32); Mean Corpuscular Hgb Concent. 34.6 g/dL (32-36); Mean Platelet Volume 9.9 fL (7.5-11.0); Platelet Count 245 x10^3/uL (150-450); Red Blood Count 3.77 x10^6/uL (4.1-5.6); Red Cell Distribution Width 12.7 % (11.5-14.0); White Blood Count 10.1 x10^3/uL (4.0-10.5)
[2023-04-29 09:26] LABS: ALBUMIN 3.1 g/dL (3.5-5.0); ANION GAP 9.4 MEQ/L (5-15); BILIRUBIN,TOTAL 1.4 mg/dL (0.2-1.3); Calcium 8.1 mg/dL (8.4-10.2); Creatinine 1 0.4 mg/dL (0.66-1.25); EST GLOMERULAR FILTRATION RATE 110.3 ML/MIN; Potassium 3.4 mmol/L (3.5-5.1); Total Protein 5.9 g/dL (6.3-8.2)
--- NOTE | 2023-04-29 13:51 | PCM.NOTE ---
Date and Time: 04/29/23 1343 Subjective Assessment: 04/27/23 is a 82 year old male with PMHX of daily smoker-( 4-5 cigars daily). He presented to the ER today with a complaint of weakness. He began to feel sick on Monday, sick for 4 days now. He has had fever on and off up to 103 degrees he was exposed to flu reportedly by a coworker. He has had nasal congestion and a cough. Even though he started feeling bad on Monday he actually felt better yesterday and then this morning felt worse and had a fall without loss of consciousness in the bathroom this morning. No significant injury. He apparently does not see his physician very frequently. UA shows UTI and ER reviewed CXR and started Merrem for pneumonia. K+ replaced on IP unit. Pt appea rs septic as lactic acid is elevated. IV fluid bouls x3 gave in ER. Procal elevated. Pt denies CP, SOB, abd. pain, N/V/D. 04/28/23 Pt resting in bed. He explains he does not feel well and does not want to go home today. Discussed labs and that at this time we do not feel he is ready to d/c. Leukocytosis has improved. BC x2 positive, sensitivity pending. Pt asks that flonase be added for his nasal congestion. Pt explains he feels weak, PT/OT ordered. He denies CP, SOB, abd. pain, N/V/D. 04/29/23 Pt resting in the chair. Family in room. Pt states he is feeling much better. Awaiting BC results. Repeat BC x2 ordered. UC negative. Pt was able to walk in the [place] today and did well. Continue antibiotics. He denies CP, SOB, abd. pain, N/V/D. - Review of Systems Constitutional: No Fever, No Chills Eyes: No Symptoms Ears, Nose, & Throat: No Symptoms Respiratory: No Cough, No Short Of Breath Cardiac: No Chest Pain, No Edema, No Syncope Abdominal/Gastrointestinal: No Abdominal Pain, No Nausea, No Vomiting, No Diarrhea Genitourinary Symptoms: No Dysuria Musculoskeletal: No Back Pain, No Neck Pain Skin: No Rash Neurological: No Dizziness, No Focal Weakness, No Sensory Changes Psychological: No Symptoms Endocrine: No Symptoms Hematologic/Lymphatic: No Symptoms Immunological/Allergic: No Symptoms Objective Exam General Appearance: no apparent distress, alert Neurologic Exam: alert, oriented x 3, cooperative, normal mood/affect, nml cerebellar function, sensation nml, No motor deficits Skin Exam: normal color, warm, dry Eye Exam: PERRL, EOMI, eyes nml inspection Ears, Nose, Throat Exam: normal ENT inspection, pharynx normal, moist mucous membranes Neck Exam: normal inspection, non-tender, supple, full range of motion Respiratory Exam: normal breath sounds, lungs clear, No respiratory distress Cardiovascular Exam: regular rate/rhythm, normal heart sounds Gastrointestinal/Abdomen Exam: soft, No tenderness, No mass Extremity Exam: normal inspection, normal range of motion Back Exam: normal inspection, normal range of motion, No CVA tenderness, No vertebral tenderness Male Genitalia Exam: deferred Rectal Exam: deferred OBJECTIVE DATA Vital Signs: Vital Signs - 24 hr Temp Pulse Resp BP BP Pulse Ox 04/29/23 11:29 97.6 F 63 16 170/79 97 04/29/23 07:50 97.3 F 52 L 16 156/78 96 04/29/23 04:00 56 L 15 04/28/23 23:55 98.2 F 54 L 16 156/74 92 L 04/28/23 19:45 98.5 F 74 17 153/86 94 L 04/28/23 16:00 97.5 F 65 18 155/84 97 Pain Assessment - Last Documented Pain Intensity 0 Intake and Output: Intake & Output 04/27/23 04/28/23 04/29/23 04/30/23 11:59 11:59 11:59 11:59 Intake Total 1860 3000 Balance 1860 3000 Weight 79.2 kg 81.3 kg Lab Results: Lab Results-Last 24 Hours 04/29/23 04/29/23 Range/Units 09:09 09:09 WBC 10.1 (4.0-10.5) x10^3/uL RBC 3.77 L (4.1-5.6) x10^6/uL Hgb 12.2 L (12.5-18.0) g/dL Hct 35.3 L (42-50) % MCV 93.6 (78-100) fL MCH 32.4 H (26-32) pg MCHC 34.6 (32-36) g/dL RDW 12.7 (11.5-14.0) % Plt Count 245 (150-450) x10^3/uL MPV 9.9 (7.5-11.0) fL Sodium 133 L (137-145) mmol/L Potassium 3.4 L (3.5-5.1) mmol/L Chloride 106 (98-107) mmol/L Carbon Dioxide 21 L (22-30) mmol/L Anion Gap 9.4 (5-15) MEQ/L BUN 19 (9-20) mg/dL Creatinine 0.40 L (0.66-1.25) mg/dL Estimated GFR 110.3 ML/MIN Glucose 127 H (74-106) mg/dL Calcium 8.1 L (8.4-10.2) mg/dL Total Bilirubin 1.40 H (0.2-1.3) mg/dL AST 22 (17-59) U/L ALT 21 (0-50) U/L Alkaline Phosphatase 67 (38-126) U/L Serum Total Protein 5.9 L (6.3-8.2) g/dL Albumin 3.1 L (3.5-5.0) g/dL Radiology Exams: Radiology Procedures Category Date Time Status CHEST WITH CONTRAST [CT] Stat Exams 04/27/23 16:41 Completed Assessment/Plan (1) Sepsis Current Visit: Yes Status: Acute (2) Right middle lobe pneumonia Current Visit: Yes Status: Acute Code(s): J18.9 - PNEUMONIA, UNSPECIFIED ORGANISM (3) Weakness Current Visit: Yes Status: Resolved Code(s): R53.1 - WEAKNESS (4) UTI (urinary tract infection) Current Visit: Yes Status: Acute Code(s): N39.0 - URINARY TRACT INFECTION, SITE NOT SPECIFIED (5) Elevated d-dimer Current Visit: Yes Status: Acute Code(s): R79.89 - OTHER SPECIFIED ABNORMAL FINDINGS OF BLOOD CHEMISTRY (6) Smoker Current Visit: Yes Status: Chronic Assessment & Plan: (1) Sepsis Current Visit: Yes Status: Acute Assessment & Plan: - 2/2 UTI, pneumonia - Lactic acid 2.5 @ 11:55, 2.1 @1408- Fluid bolus x3 gave in ER - procal 3.660 04/28 - BC X2 gram negative rods and gram + cocci- sensitivity pending - Lactic acid WNL - WBC 14.1- improved 04/29 - WBC 10.1 (2) Right middle lobe pneumonia Current Visit: Yes Status: Acute Assessment & Plan: - CXR 04/27 Portable chest demonstrates new right perihilar airspace disease on background of air bronchograms. Remaining heart and lungs unremarkable again with incidental right hemidiaphragm elevation. Bony thorax intact again with osteopenia and mild degenerative changes - Merrem started in ER- continue Q8hr 04/28 - CTA 04/27 Impression: 1. Respiration artifact. No pulmonary embolus. 2. Diffuse scattered bilateral consolidating/nonconsolidating airspace disease greatest right lower lobe with tiny right effusion. 3. Incidental small hiatal hernia, fatty liver, and chronic bony findings. 04/29 - BC x2 pending sensitivity - repeat BC x2 ordered Code(s): J18.9 - PNEUMONIA, UNSPECIFIED ORGANISM (3) Weakness Current Visit: Yes Status: Acute Assessment & Plan: -pt/ot Eval 04/28 - Continued weakness 04/29 - resolved Code(s): R53.1 - WEAKNESS (4) UTI (urinary tract infection) Current Visit: Yes Status: Acute Assessment & Plan: - merrem gave in ER- continue - UC pending 04/28 - UC - no growth to date Code(s): N39.0 - URINARY TRACT INFECTION, SITE NOT SPECIFIED (5) Elevated d-dimer Current Visit: Yes Status: Acute Assessment & Plan: - D-Dimer 4.95 - CTA - reviewed, negative for PE Code(s): R79.89 - OTHER SPECIFIED ABNORMAL FINDINGS OF BLOOD CHEMISTRY (6) Smoker Current Visit: Yes Status: Chronic Assessment & Plan: - advised cessation - nicotine patch VTE: Lovenox Next of kin: D/C plan: 2-3 days Code status: full Code(s): F17.200 - NICOTINE DEPENDENCE, UNSPECIFIED, UNCOMPLICATED
[2023-04-30 04:33] VITALS: RESP 16
[2023-04-30 07:33] LABS: Hematocrit 33.3 % (42-50); Hemoglobin 11.3 g/dL (12.5-18.0); Mean Cell Volume 94.3 fL (78-100); Mean Corpuscular Hgb Concent. 33.9 g/dL (32-36); Mean Platelet Volume 9.7 fL (7.5-11.0); Platelet Count 245 x10^3/uL (150-450); Red Blood Count 3.53 x10^6/uL (4.1-5.6); Red Cell Distribution Width 12.8 % (11.5-14.0); White Blood Count 6.5 x10^3/uL (4.0-10.5)
[2023-04-30 07:40] LABS: ALBUMIN 2.8 g/dL (3.5-5.0); ANION GAP 6.6 MEQ/L (5-15); Calcium 7.9 mg/dL (8.4-10.2); Creatinine 1 0.44 mg/dL (0.66-1.25); EST GLOMERULAR FILTRATION RATE 107.2 ML/MIN; Potassium 3.5 mmol/L (3.5-5.1); Total Protein 5.4 g/dL (6.3-8.2)
[2023-04-30] MEDS: hydroDIURIL 25 MG PO SCH (09:38)
[2023-04-30 11:51] VITALS: BP 166/74; PULSE 58; TEMP 97.9; O2SAT 97
--- NOTE | 2023-04-30 12:59 | PCM.NOTE ---
Date and Time: 04/30/23 1254 Subjective Assessment: 04/27/23 is a 82 year old male with PMHX of daily smoker-( 4-5 cigars daily). He presented to the ER today with a complaint of weakness. He began to feel sick on Monday, sick for 4 days now. He has had fever on and off up to 103 degrees he was exposed to flu reportedly by a coworker. He has had nasal congestion and a cough. Even though he started feeling bad on Monday he actually felt better yesterday and then this morning felt worse and had a fall without loss of consciousness in the bathroom this morning. No significant injury. He apparently does not see his physician very frequently. UA shows UTI and ER reviewed CXR and started Merrem for pneumonia. K+ replaced on IP unit. Pt appears septic as lactic acid is elevated. IV fluid bouls x3 gave in ER. Procal elevated. Pt denies CP, SOB, abd. pain, N/V/D. 04/28/23 Pt resting in bed. He explains he does not feel well and does not want to go home today. Discussed labs and that at this time we do not feel he is ready to d/c. Leukocytosis has improved. BC x2 positive, sensitivity pending. Pt asks that flonase be added for his nasal congestion. Pt explains he feels weak, PT/OT ordered. He denies CP, SOB, abd. pain, N/V/D. 04/29/23 Pt resting in the chair. Family in room. Pt states he is feeling much better. Awaiting BC results. Repeat BC x2 ordered. UC negative. Pt was able to walk in the [place] today and did well. Continue antibiotics. He denies CP, SOB, abd. pain, N/V/D. 04/30/23 Pt resting in chair. He feels well and would like to d/c. Awaiting new BC x2 results. When they come back can d/c. Labs have all improved. He has been walking around and doing well. Will continue antibiotics. He denies CP, SOB, abd. pain, N/V/D. - Review of Systems Constitutional: No Fever, No Chills Eyes: No Symptoms Ears, Nose, & Throat: No Symptoms Respiratory: No Cough, No Short Of Breath Cardiac: No Chest Pain, No Edema, No Syncope Abdominal/Gastrointestinal: No Abdominal Pain, No Nausea, No Vomiting, No Diarrhea Genitourinary Symptoms: No Dysuria Musculoskeletal: No Back Pain, No Neck Pain Skin: No Rash Neurological: No Dizziness, No Focal Weakness, No Sensory Changes Psychological: No Symptoms Endocrine: No Symptoms Hematologic/Lymphatic: No Symptoms Immunological/Allergic: No Symptoms Objective Exam General Appearance: no apparent distress, alert Neurologic Exam: alert, oriented x 3, cooperative, normal mood/affect, nml cerebellar function, sensation nml, No motor deficits Skin Exam: normal color, warm, dry Eye Exam: PERRL, EOMI, eyes nml inspection Ears, Nose, Throat Exam: normal ENT inspection, pharynx normal, moist mucous membranes Neck Exam: normal inspection, non-tender, supple, full range of motion Respiratory Exam: normal breath sounds, lungs clear, No respiratory distress Cardiovascular Exam: regular rate/rhythm, normal heart sounds Gastrointestinal/Abdomen Exam: soft, No tenderness, No mass Extremity Exam: normal inspection, normal range of motion Back Exam: normal inspection, normal range of motion, No CVA tenderness, No vertebral tenderness Male Genitalia Exam: deferred Rectal Exam: deferred OBJECTIVE DATA Vital Signs: Vital Signs - 24 hr Temp Pulse Resp BP BP Pulse Ox 04/30/23 11:50 97.9 F 58 L 16 166/74 97 04/30/23 07:14 97.8 F 50 L 16 178/81 94 L 04/30/23 04:00 97.5 F 51 L 16 95 04/29/23 23:49 97.6 F 52 L 17 165/76 96 04/29/23 19:50 98.6 F 63 18 183/81 93 L 04/29/23 16:00 97.7 F 62 16 162/77 99 Pain Assessment - Last Documented Pain Intensity 0 Intake and Output: Intake & Output 04/28/23 04/29/23 04/30/23 05/01/23 11:59 11:59 11:59 11:59 Intake Total 1860 3000 5168 Balance 1860 3000 5168 Weight 81.3 kg Lab Results: Lab Results-Last 24 Hours 04/30/23 04/30/23 Range/Units 07:26 07:26 WBC 6.5 (4.0-10.5) x10^3/uL RBC 3.53 L (4.1-5.6) x10^6/uL Hgb 11.3 L (12.5-18.0) g/dL Hct 33.3 L (42-50) % MCV 94.3 (78-100) fL MCH 32.0 (26-32) pg MCHC 33.9 (32-36) g/dL RDW 12.8 (11.5-14.0) % Plt Count 245 (150-450) x10^3/uL MPV 9.7 (7.5-11.0) fL Sodium 134 L (137-145) mmol/L Potassium 3.5 (3.5-5.1) mmol/L Chloride 106 (98-107) mmol/L Carbon Dioxide 25 (22-30) mmol/L Anion Gap 6.6 (5-15) MEQ/L BUN 15 (9-20) mg/dL Creatinine 0.44 L (0.66-1.25) mg/dL Estimated GFR 107.2 ML/MIN Glucose 95 (74-106) mg/dL Calcium 7.9 L (8.4-10.2) mg/dL Total Bilirubin 1.00 (0.2-1.3) mg/dL AST 17 (17-59) U/L ALT 21 (0-50) U/L Alkaline Phosphatase 63 (38-126) U/L Serum Total Protein 5.4 L (6.3-8.2) g/dL Albumin 2.8 L (3.5-5.0) g/dL Assessment/Plan (1) Sepsis Current Visit: Yes Status: Acute (2) Right middle lobe pneumonia Current Visit: Yes Status: Acute Code(s): J18.9 - PNEUMONIA, UNSPECIFIED ORG ANISM (3) Weakness Current Visit: Yes Status: Resolved Code(s): R53.1 - WEAKNESS (4) UTI (urinary tract infection) Current Visit: Yes Status: Acute Code(s): N39.0 - URINARY TRACT INFECTION, SITE NOT SPECIFIED (5) Elevated d-dimer Current Visit: Yes Status: Acute Code(s): R79.89 - OTHER SPECIFIED ABNORMAL FINDINGS OF BLOOD CHEMISTRY (6) Smoker Current Visit: Yes Status: Chronic Assessment & Plan: (1) Sepsis Current Visit: Yes Status: Acute Assessment & Plan: - 2/2 UTI, pneumonia - Lactic acid 2.5 @ 11:55, 2.1 @1408- Fluid bolus x3 gave in ER - procal 3.660 04/28 - BC X2 gram negative rods and gram + cocci- sensitivity pending - Lactic acid WNL - WBC 14.1- improved 04/29 - WBC 10.1 04/30 - WBC 6.5 - continue antibiotics (2) Right middle lobe pneumonia Current Visit: Yes Status: Acute Assessment & Plan: - CXR 04/27 Portable chest demonstrates new right perihilar airspace disease on background of air bronchograms. Remaining heart and lungs unremarkable again with incidental right hemidiaphragm elevation. Bony thorax intact again with osteopenia and mild degenerative changes - Merrem started in ER- continue Q8hr 04/28 - CTA 04/27 Impression: 1. Respiration artifact. No pulmonary embolus. 2. Diffuse scattered bilateral consolidating/nonconsolidating airspace disease greatest right lower lobe with tiny right effusion. 3. Incidental small hiatal hernia, fatty liver, and chronic bony findings. 04/29 - BC x2 pending sensitivity reviewed 04/29 - repeat BC x2 ordered- pending Code(s): J18.9 - PNEUMONIA, UNSPECIFIED ORGANISM (3) Weakness Current Visit: Yes Status: Acute Assessment & Plan: -pt/ot Eval 04/28 - Continued weakness 04/29 - resolved Code(s): R53.1 - WEAKNESS (4) UTI (urinary tract infection) Current Visit: Yes Status: Acute Assessment & Plan: - merrem gave in ER- continue - UC pending 04/28 - UC - no growth to date Code(s): N39.0 - URINARY TRACT INFECTION, SITE NOT SPECIFIED (5) Elevated d-dimer Current Visit: Yes Status: Acute Assessment & Plan: - D-Dimer 4.95 - CTA - reviewed, negative for PE Code(s): R79.89 - OTHER SPECIFIED ABNORMAL FINDINGS OF BLOOD CHEMISTRY (6) Smoker Current Visit: Yes Status: Chronic Assessment & Plan: - advised cessation - nicotine patch VTE: Lovenox Next of kin: D/C plan: tomorrow Code status: full Code(s): F17.200 - NICOTINE DEPENDENCE, UNSPECIFIED, UNCOMPLICATED
--- NOTE | 2023-04-30 14:59 | PCM.DS ---
Discharge Summary Date of Admission: 04/28/23 12:51 Date of Discharge: 04/30/23 Admitting Physician: ISAI HERNÁNDEZ MD Primary Care Provider: NO FAMILY DOCTOR Allergies Allergies hydroxyzine Adverse Reaction (Mild, Verified 04/27/23 13:37) Rapid Heart Beat amoxicillin Adverse Reaction (Verified 04/27/23 11:21) Insomnia, Hyperactivity Hospital Summary - Hospital Course Hospital Course: 04/27/23 is a 82 year old male with PMHX of daily smoker-( 4-5 cigars daily). He presented to the ER today with a complaint of weakness. He began to feel sick on Monday, sick for 4 days now. He has had fever on and off up to 103 degrees he was exposed to flu reportedly by a coworker. He has had nasal congestion and a cough. Even though he started feeling bad on Monday he actually felt better yesterday and then this morning felt worse and had a fall without loss of consciousness in the bathroom this morning. No significant injury. He apparently does not see his physician very frequently. UA shows UTI and ER reviewed CXR and started Merrem for pneumonia. K+ replaced on IP unit. Pt appears septic as lactic acid is elevated. IV fluid bouls x3 gave in ER. Procal elevated. Pt denies CP, SOB, abd. pain, N/V/D. 04/28/23 Pt resting in bed. He explains he does not feel well and does not want to go home today. Discussed labs and that at this time we do not feel he is ready to d/c. Leukocytosis has improved. BC x2 positive, sensitivity pending. Pt asks that flonase be added for his nasal congestion. Pt explains he feels weak, PT/OT ordered. He denies CP, SOB, abd. pain, N/V/D. 04/29/23 Pt resting in the chair. Family in room. Pt states he is feeling much better. Awaiting BC results. Repeat BC x2 ordered. UC negative. Pt was able to walk in the [place] today and did well. Continue antibiotics. He denies CP, SOB, abd. pain, N/V/D. 04/30/23 Pt resting in chair. He feels well and would like to d/c. New BC x2 results are negative, ok to d/c today. Labs have all improved. He has been walking around and doing well. Will continue antibiotics OP, and f/u with PCP this week. He denies CP, SOB, abd. pain, N/V/D. - Vitals & Intake/Output Vital Signs: Vital Signs Temperature 97.9 F 04/30/23 11:50 Pulse Rate 58 L 04/30/23 11:50 Respiratory Rate 16 04/30/23 11:50 Blood Pressure 166/74 04/30/23 11:50 O2 Sat by Pulse Oximetry 97 04/30/23 11:50 Intake & Output: Intake & Output 04/28/23 04/29/23 04/30/23 05/01/23 11:59 11:59 11:59 11:59 Intake Total 1860 3000 5168 380 Balance 1860 3000 5168 380 Weight 81.3 kg - Lab Result Diagrams: 04/30/23 07:26 04/30/23 07:26 Lab Results-Last 24 Hrs: Lab Results-Last 24 Hours 04/30/23 04/30/23 Range/Units 07:26 07:26 WBC 6.5 (4.0-10.5) x10^3/uL RBC 3.53 L (4.1-5.6) x10^6/uL Hgb 11.3 L (12.5-18.0) g/dL Hct 33.3 L (42-50) % MCV 94.3 (78-100) fL MCH 32.0 (26-32) pg MCHC 33.9 (32-36) g/dL RDW 12.8 (11.5-14.0) % Plt Count 245 (150-450) x10^3/uL MPV 9.7 (7.5-11.0) fL Sodium 134 L (137-145) mmol/L Potassium 3.5 (3.5-5.1) mmol/L Chloride 106 (98-107) mmol/L Carbon Dioxide 25 (22-30) mmol/L Anion Gap 6.6 (5-15) MEQ/L BUN 15 (9-20) mg/dL Creatinine 0.44 L (0.66-1.25) mg/dL Estimated GFR 107.2 ML/MIN Glucose 95 (74-106) mg/dL Calcium 7.9 L (8.4-10.2) mg/dL Total Bilirubin 1.00 (0.2-1.3) mg/dL AST 17 (17-59) U/L ALT 21 (0-50) U/L Alkaline Phosphatase 63 (38-126) U/L Serum Total Protein 5.4 L (6.3-8.2) g/dL Albumin 2.8 L (3.5-5.0) g/dL Micro Results-Entire Visit: Microbiology 04/29/23 10:38 Blood Culture - Preliminary Blood 04/29/23 10:32 Blood Culture - Preliminary Blood 04/27/23 11:35 Blood Culture Gram Stain - Final Blood Blood Culture - Final SEE REFERENCE LAB REPORT FOR FINAL RESULTS 04/27/23 11:40 Blood Culture Gram Stain - Final Blood Blood Culture - Final SEE REFERENCE LAB REPORT FOR FINAL RESULTS 04/27/23 12:59 Urine Culture - Final Urine, Void NO GROWTH - Procedures and Test Procedures and Tests throughout Hospitalization: Therapy Orders & Screens 04/27/23 16:13 OT Screen per Nursing Assess ONCE Comment: Protocol Order Physician Instructions: Greater than 3 points order OT Admission Screening Reason For Exam: Triggered on Admission Diagnosis: Right pneumonia Open Wound/Cellutlitis/Pressure Ulcers: No Acute Fx/ORIF/Change in wt bearing status: No Severe MUSCULOSKELETAL pain: No ADL Dysfunction: Yes Acute CVA w/Hemiparesis/Hemiplegia: No Decreased Functional Mobility/Strength: Yes Sprain/Strain: No Acute Post-op Mobility Dysfunction: No Total Points: 4 PT Screen per Nursing Assess ONCE Comment: Protocol Order Physician Instructions: Greater than 3 points order PT Admission Screenin Reason For Exam: Triggered on Admission Diagnosis: Right pneumonia Open Wound/Cellutlitis/Pressure Ulcers: No Acute Fx/ORIF/Change in wt bearing status: No Severe MUSCULOSKELETAL pain: No ADL Dysfunction: Yes Acute CVA w/Hemiparesis/Hemiplegia: No Decreased Functional Mobility/Strength: Yes Sprain/Strain: No Acute Post-op Mobility Dysfunction: No Total Points: 4 Smoking Cessation Education ONCE Comment: Diagnosis: Right pneumonia Smoking Status: Current every day smoker How long have you smoked: 65 years+ Have you smoked in the past 12 months: Yes Approximately how many cigarettes per day: 4-5 cigars daily Do you dip or chew tobacco: No ST Screen per Nursing Assess ONCE Comment: Protocol Order Physician Instructions: Greater than [address] Admission Screening Reason For Exam: Triggered on Admission Diagnosis: Right pneumonia CVA/Dyshpagia/Aphasia: No Cognitive Deficits: No Dehydration/Nutrition Deficit: No Reflux: No Oral-Motor Difficulties: No Pneumonia: Yes [facility] Resident: No Total Points: 5 Discharge Exam General Appearance: no apparent distress, alert Neurologic Exam: alert, oriented x 3, cooperative, normal mood/affect, nml cereb ellar function, sensation nml, No motor deficits Eye Exam: PERRL, EOMI, eyes nml inspection Ears, Nose, Throat Exam: normal ENT inspection, pharynx normal, moist mucous membranes Neck Exam: normal inspection, non-tender, supple, full range of motion Respiratory Exam: normal breath sounds, lungs clear, No respiratory distress Cardiovascular Exam: regular rate/rhythm, normal heart sounds Gastrointestinal/Abdomen Exam: soft, No tenderness, No mass Male Genitalia Exam: deferred Rectal Exam: deferred Back Exam: normal inspection, normal range of motion, No CVA tenderness, No vertebral tenderness Extremity Exam: normal inspection, normal range of motion Skin Exam: normal color, warm, dry Final Diagnosis/Problem List - Final Discharge Diagnosis/Problem (1) Sepsis Current Visit: Yes Status: Acute (2) Right middle lobe pneumonia Current Visit: Yes Status: Acute Code(s): J18.9 - PNEUMONIA, UNSPECIFIED ORGANISM (3) Weakness Current Visit: Yes Status: Resolved Code(s): R53.1 - WEAKNESS (4) UTI (urinary tract infection) Current Visit: Yes Status: Acute Code(s): N39.0 - URINARY TRACT INFECTION, SITE NOT SPECIFIED (5) Elevated d-dimer Current Visit: Yes Status: Acute Code(s): R79.89 - OTHER SPECIFIED ABNORMAL FINDINGS OF BLOOD CHEMISTRY (6) Smoker Current Visit: Yes Status: Chronic Assessment & Plan: (1) Sepsis Current Visit: Yes Status: Acute Assessment & Plan: - 2/2 UTI, pneumonia - Lactic acid 2.5 @ 11:55, 2.1 @1408- Fluid bolus x3 gave in ER - procal 3.660 04/28 - BC X2 gram negative rods and gram + cocci- sensitivity pending - Lactic acid WNL - WBC 14.1- improved 04/29 - WBC 10.1 04/30 - WBC 6.5 - continue antibiotics (2) Right middle lobe pneumonia Current Visit: Yes Status: Acute Assessment & Plan: - CXR 04/27 Portable chest demonstrates new right perihilar airspace disease on background of air bronchograms. Remaining heart and lungs unremarkable again with incidental right hemidiaphragm elevation. Bony thorax intact again with osteopenia and mild degenerative changes - Merrem started in ER- continue Q8hr 04/28 - CTA 04/27 Impression: 1. Respiration artifact. No pulmonary embolus. 2. Diffuse scattered bilateral consolidating/nonconsolidating airspace disease greatest right lower lobe with tiny right effusion. 3. Incidental small hiatal hernia, fatty liver, and chronic bony findings. 04/29 - BC x2 pending sensitivity reviewed 04/29 - repeat BC x2 ordered- no lawrence to date - d/c with cefuroxime x5 days BID Code(s): J18.9 - PNEUMONIA, UNSPECIFIED ORGANISM (3) Weakness Current Visit: Yes Status: Acute Assessment & Plan: -pt/ot Eval 04/28 - Continued weakness 04/29 - resolved Code(s): R53.1 - WEAKNESS (4) UTI (urinary tract infection) Current Visit: Yes Status: Acute Assessment & Plan: - merrem gave in ER- continue - UC pending 04/28 - UC - no growth to date Code(s): N39.0 - URINARY TRACT INFECTION, SITE NOT SPECIFIED (5) Elevated d-dimer Current Visit: Yes Status: Acute Assessment & Plan: - D-Dimer 4.95 - CTA - reviewed, negative for PE Code(s): R79.89 - OTHER SPECIFIED ABNORMAL FINDINGS OF BLOOD CHEMISTRY (6) Smoker Current Visit: Yes Status: Chronic Assessment & Plan: - advised cessation - nicotine patch Code(s): F17.200 - NICOTINE DEPENDENCE, UNSPECIFIED, UNCOMPLICATED - Discharge Discharge Date: 04/30/23 Disposition: Home, Self-Care Condition: Fair Prescriptions: New Cefuroxime Axetil 500 mg [Ceftin 500 mg] 500 mg PO BID PRN 5 Days #10 tablet Continue Acetaminophen 500 mg [Tylenol Extra Strength 500 mg] 500 mg PO Q4H PRN PRN PRN Reason: Headache Additional Instructions: PLease make an appointment with a PCP after antibiotics are complete for further evaluation and to recheck blood pressure. Follow up with: DOCTOR,NO FAMILY [Primary Care Provider] -
== END 2023-04-30 15:30 | disposition home or self-care (01) | DRG 871 ==
LOC: ED 11:15 → MED SURG 14:38 → OBSVTOIN 04-28 12:51
PROVIDERS: ADMIT Internal Medicine; ATTEND Internal Medicine
DX: A41.9 Sepsis, unspecified organism (principal); J18.9 Pneumonia, unspecified organism; N39.0 Urinary tract infection, site not specified; R53.1 Weakness; R79.89 Other specified abnormal findings of blood chemistry; F17.200 Nicotine dependence, unspecified, uncomplicated; W19.XXXA Unspecified fall, initial encounter; Z20.828 Contact with and (suspected) exposure to other viral communicable diseases
CPT/HCPCS: 0241U; 36000; 36415; 71045; 71260; 80053; 81001; 83605; 83735; 83880; 84145; 85025; 85027; 85379; 85652; 87040; 87086; 87651; 93005; 93268; 99285; G0378; Q3014; J1650; A9270-GY

== ENCOUNTER 2023-05-16 01:03 | Emergency (ER) | payer MEDICARE, BC ==
--- NOTE | 2023-05-16 01:37 | ERPHSYRPT ---
- History of Present Illness Time Seen by Provider: 05/16/23 01:36 Source: patient, family Exam Limitations: no limitations Physician History: This is an 82-year-old white male who is a patient of Dr. Jha and presents with urinary retention and dysuria. Last time the patient urinated was on 05/15/2019 for greater than 12 hours prior to arrival. Patient is not the best historian. His is also not the best historian. Patient is just starting to be evaluated by physicians. Patient states that he has been healthy and it was recently where he was found to have a lung issue and is being followed as an outpatient for this. He currently has pressure in his suprapubic/pelvic region as well as some pressure in the right flank. Patient denies chest pain. He denies shortness of breath. He denies cough. Timing/Duration: yesterday, worse (This morning) Activites at Onset: none Quality: aching, pressure Onset Location: right flank Pain Radiation: suprapubic Severity of Pain-Max: mild (Moderate) Severity of Pain-Current: mild (To moderate) Modifying Factors: Improves With: nothing Associated Symptoms: dysuria Prior abdominal problems: none Sexual intercourse history: non-contributory Allergies/Adverse Reactions: hydroxyzine Adverse Reaction (Mild, Verified 05/16/23 01:49) Rapid Heart Beat amoxicillin Adverse Reaction (Verified 05/16/23 01:49) Insomnia, Hyperactivity Home Medications: Docusate Sodium [Colace] 2 tab PO DAILY 05/16/23 [History] Ferrous Sulfate 325 mg [Feosol 325 mg] 1 tab PO BID 05/16/23 [History] polyethylene glycoL 3350 [Miralax Powder] 17 g PO DAILY PRN PRN 05/16/23 [History] Hx Tetanus, Diphtheria Vaccination/Date Given: No Hx Influenza Vaccination/Date Given: No Hx Pneumococcal Vaccination/Date Given: No Travel Risk - International Travel Have you traveled outside of the country in past 3 weeks: No - Coronavirus Screening Are you exhibiting any of the following symptoms?: No Close contact with a COVID-19 positive Pt in past 14-21 Days: No - Vaccine Status Have you recieved a Covid-19 vaccination: No - Past Medical History Pertinent Past Medical History: No Neurological History: No Pertinent History ENT History: No Pertinent History Cardiac History: No Pertinent History Respiratory History: No Pertinent History Endocrine Medical History: No Pertinent History Musculoskeletal History: No Pertinent History GI Medical History: No Pertinent History History: No Pertinent History Psycho-Social History: No Pertinent History Male Reproductive Disorders: No Pertinent History - Past Surgical History Past Surgical History: Yes Neuro Surgical History: No Pertinent History Cardiac: No Pertinent History Respiratory: No Pertinent History Gastrointestinal: Hernia Repair Genitourinary: No Pertinent History Musculoskeletal: No Pertinent History Male Surgical History: No Pertinent History Other Surgical History: Nasal polyp removal - Social History Smoking Status: Current every day smoker How long have you smoked: 65 years+ Exposure to second hand smoke: No Drug Use: none Patient Lives Alone: No - Review of Systems Constitutional: No Symptoms Eyes: No Symptoms Ears, Nose, & Throat: Other (Patient has poor dentition.) Respiratory: No Symptoms Cardiac: No Symptoms Abdominal/Gastrointestinal: Abdominal Pain (Prepubic fullness and pressure) Genitourinary Symptoms: Urinary Retention, Flank Pain (Mild right side) Musculoskeletal: No Symptoms Skin: No Symptoms Neurological: No Symptoms Psychological: No Symptoms Endocrine: No Symptoms Hematologic/Lymphatic: No Symptoms Immunological/Allergic: No Symptoms All Other Systems: Reviewed and Negative - Nursing Vital Signs Nursing Vital Signs: Initial Vital Signs Temperature 98.9 F 05/16/23 01:39 Pulse Rate 86 05/16/23 01:39 Respiratory Rate 18 05/16/23 01:39 Blood Pressure 152/85 05/16/23 01:39 O2 Sat by Pulse Oximetry 96 05/16/23 01:39 Pain Scale Pain Intensity 0 - Physical Exam General Appearance: no apparent distress, alert, anxiety Eye Exam: PERRL/EOMI, eyes nml inspection Ears, Nose, Throat Exam: moist mucous membranes, other (Poor dentition) Neck Exam: normal inspection, non-tender, supple, full range of motion Respiratory Exam: normal breath sounds, lungs clear, airway intact, No chest tenderness, No respiratory distress Cardiovascular Exam: regular rate/rhythm, normal heart sounds, normal peripheral pulses Gastrointestinal/Abdomen Exam: soft, normal bowel sounds, tenderness (Mild suprapubic pressure), No guarding, No rebound Rectal Exam: not done Back Exam: normal inspection, normal range of motion, CVA tenderness (Mild right side), No vertebral tenderness Extremity Exam: normal inspection, normal range of motion, pelvis stable Neurologic Exam: alert, oriented x 3, cooperative, swine nutritionist II-XII nml as tested, normal mood/affect, nml cerebellar function, nml station & gait, sensation nml Skin Exam: normal color, warm, dry Lymphatic Exam: No adenopathy SpO2 Interpretation: normal O2 Delivery: Room Air - Course Nursing assessment & vital signs reviewed: Yes Ordered Tests: Active Orders 24 hr Category Date Time Status CULTURE,URINE Stat Lab 05/16/23 02:20 Received UA W/RFX UR CULTURE Stat Lab 05/16/23 02:20 Completed Lab/Rad Data: Laboratory Results 05/16/23 Range/Units 02:20 Urine Color Dark Yellow (Yellow) Urine Appearance Clear (Clear) Urine pH 6.0 (4.6-8.0) Ur Specific [place] 1.025 (1.005-1.030) Urine Protein Negative (Negative) Urine Glucose (UA) Negative (Negative) mg/dL Urine Ketones Negative (Negative) Urine Blood Negative (Negative) Urine Nitrite Negative (Negative) Urine Bilirubin Negative (Negative) Urine Urobilinogen 1.0 A (0.2) mg/dL Ur Leukocyte Esterase Negative (Negative) U Hyaline Cast (Auto) NONE SEEN (0-2) /LPF Urine Microscopic RBC 3-5 (0-5) /HPF Urine Microscopic WBC 0-2 (0-5) /HPF Ur Epithelial Cells None Seen (None Seen) /HPF Urine Bacteria None Seen (None Seen) /HPF Urine Culture Reflexed ORDERED SEPARATELY (NO) - Progress Progress: improved, re-examined Progress Note: 05/16/23 03:58 This patient's medical issue is 1 of low complexity. The level of complexity in the workup performed is based on review of the patient's past medical history, review of the patient's medication list, review of patient drug allergy list, history of present illness and physical findings on examination. The workup in this patient includes placement of a Lindo catheter. Patient chose Lindo catheter placement versus a straight cath. He wants to keep the Lindo catheter in place. There was immediate 700 to 750 mL of urine removed from the patient's urinary bladder. We sent the urine off for urinalysis. I interpreted the patient's laboratory data results. There is no evidence of urinary tract infection. The patient has had his presenting symptoms completely resolved after placement of a urinary Lindo catheter. Patient will be discharged home with Lindo catheter in place and instructions for its care. Patient will follow-up with Dr. Jha later today to make arrangements for referral to urologist. Counseled pt/family regarding: lab results, diagnosis, need for follow-up Medical Desision Making - Independent Historian Additional History obtained from: Spouse - Diagnostic Testing Diagnostic test were ordered, analyzed, and reviewed by me: Yes - Risk of complications Low Risk: Low risk of morbidity from additional dx testing or treatment - Departure Departure Disposition: Home Clinical Impression: Urinary retention Condition: Stable Critical Care Time: No Referrals: RODO JHA MD [Primary Care Provider] - Follow up/PCP as directed Additional Instructions: Drink plenty fluids. Take all your medications as prescribed. Call your primary care provider's office today, 05/16/2023 to make arrangements for follow- up with Dr. Jha and to make arrangements to follow-up with the urologist to further evaluate your prostate.
[2023-05-16 01:41] VITALS: RESP 18; TEMP 98.9
[2023-05-16 02:54] LABS: Appearance Clear (Clear); Bacteria None Seen /HPF (None Seen); Bilirubin Negative (Negative); Blood Negative (Negative); Epithelial Cells None Seen /HPF (None Seen); Glucose, Urine Negative (Negative); Hyaline Casts NONE SEEN /LPF (0-2); Ketones Negative (Negative); Leukocyte Esterase Negative (Negative); Nitrite Negative (Negative); Protein,Urine Dip Negative (Negative); Specific Gravity 1.025 (1.005-1.030); WBC 0-2 /HPF (0-5)
[2023-05-16 02:56] LABS: ADD URINE CULTURE? ORDERED SEPARATELY (NO)
[2023-05-16 04:11] VITALS: BP 145/79; PULSE 68; O2SAT 95
== END 2023-05-16 04:15 | disposition home or self-care (01) ==
LOC: ED 01:03
DX: R33.9 Retention of urine, unspecified (principal); R30.0 Dysuria; R10.2 Pelvic and perineal pain; Z79.899 Other long term (current) drug therapy; Z28.310 Unvaccinated for COVID-19; Z72.0 Tobacco use
CPT/HCPCS: 51702; 81001; 87086; 99283

== ENCOUNTER 2023-07-12 05:37 | Day surgery (SDC) | payer MEDICARE, BC ==
[2023-07-12] MEDS ORDERED: Lactated Ringers 1,000 ML IV ONE (06:06)
[2023-07-12] MEDS: Lactated Ringers 1,000 ML IV SCH (06:19)
[2023-07-12 06:37] VITALS: RESP 18
[2023-07-12] MEDS ORDERED: DIPRIVAN 200 MG/20 ML IV ONE (07:13)
--- NOTE | 2023-07-12 08:06 | PCM.DCORD ---
- Discharge Disposition: Home, Self-Care Condition: Stable Prescriptions: New PANTOPRAZOLE 40 mg Tablet [Protonix 40MG Tablet] 40 mg PO QPM #30 tab Continue Ferrous Sulfate 325 mg [Feosol 325 mg] 1 tab PO BID Docusate Sodium [Colace] 2 tab PO DAILY polyethylene glycoL 3350 [Miralax Powder] 17 g PO DAILY PRN PRN PRN Reason: Constipation Senna 8.6 mg [Senokot 8.6 mg] 2 tab PO DAILY PRN PRN Reason: Constipation Fluticasone Propionate [Flonase NASAL] 1 spray IH DAILY Acetic Acid 5 drops DROPS TID Tamsulosin HCl 0.4 mg [Flomax 0.4 MG] 1 tab PO DAILY Follow up with: RODO JHA MD [Primary Care Provider] -
[2023-07-12 08:49] VITALS: BP 136/74; PULSE 58; TEMP 97.9; O2SAT 92
--- NOTE | 2023-07-12 08:50 | OP ---
SURGERY DATE/TIME: 07/12/2023 0742 PREOPERATIVE DIAGNOSES: 1) Dysphagia. 2) Odynophagia. POSTOPERATIVE DIAGNOSIS: Distal esophagus mass. PROCEDURE: EGD. SURGEON: Gustavo Chapin M.D. ANESTHESIA: MAC. QUANTITATIVE BLOOD LOSS: Minimal. SPECIMENS: Cold forceps biopsy from distal esophagus mass. DESCRIPTION OF PROCEDURE: After informed written consent was obtained, the patient was taken to the endoscopy suite. He was placed in the left lateral decubitus position and a bite block was inserted. Anesthesia was titrated to the desired level of consciousness. The esophagus was easily traversed under direct visualization. There was ulceration and bleeding in the distal esophagus with an obvious mass upon entry into the distal esophagus/gastroesophageal junction region. The stomach had a normal rugated gastric mucosa. There were no ulcerations or lesions in the stomach. The pylorus was traversed and the first and second portions of the duodenum were within normal limits. Retroflexion was able to see the distal esophagus mass as it extended to the gastroesophageal junction. It was biopsied from the bottom side and then pulled back to the distal esophagus, took multiple pictures to show the mass including approximately a third of the esophageal diameter. I took multiple cold forceps biopsies of the lesion. It was very friable and bled easily but blood loss is minimal and the patient remained stable throughout the entirety of the procedure. The scope is removed. The patient is transferred to the recovery room in good condition. I have advised the patient's caregiver that he will need to be seen in a week for follow up as the lesion is concerning. We will start proton pump inhibitor to try to aid in healing and reduce acid at this time.
== END 2023-07-12 09:00 | disposition home or self-care (01) ==
LOC: SDC 05:37
PROVIDERS: ATTEND Family Medicine
DX: C15.5 Malignant neoplasm of lower third of esophagus (principal); K22.89 Other specified disease of esophagus; R13.10 Dysphagia, unspecified
CPT/HCPCS: 99100; J2704

== ENCOUNTER 2023-09-05 22:03 | Emergency (ER) | payer MEDICARE, BC ==
[2023-09-05] MEDS ORDERED: XYLOCAINE 2% Uro-Jet ONE (22:34)
[2023-09-05] MEDS: XYLOCAINE 2% Uro-Jet TOP ONE (22:43)
[2023-09-05 22:55] VITALS: BP 133/76; PULSE 56; RESP 16; TEMP 98.1; O2SAT 98
--- NOTE | 2023-09-05 22:59 | ERPHSYRPT ---
- History of Present Illness Time Seen by Provider: 09/05/23 22:59 Source: patient Exam Limitations: no limitations Patient Subjective Stated Complaint: pt states his catheter was taken out today in the dr ofc and he has not bedn able to void since. rates pain at 9/10 Triage Nursing Assessment: pt laert and oriented. answers questions approp. pt ambulates to room per self with steady gait noted. respirations nonlabored. skin warm and dry. pt distended over bladder area and tender. galindo cath anchored and 350cc concentrated urine Physician History: 82-year-old male history of metastatic esophageal cancer presents to our ED for evaluation of urinary retention. Patient has a recent history of urinary retention. Patient had a Galindo catheter removed today by his doctors nurse nurse. Shortly thereafter patient could not urinate. Patient is here as he feels his bladder filling with urine. Pain is tolerable. No trauma no fever. No diarrhea no rash. Symptoms are mild to moderate in intensity. Palpation to the suprapubic region reproduces discomfort. at bedside. They voiced no other complaints or concerns at this time. Portions of this note were created with voice recognition technology. There may be grammatical, spelling, punctuation or sound alike errors Timing/Duration: today Severity: moderate Modifying Factors: Improves With: nothing Associated Symptoms: denies symptoms Allergies/Adverse Reactions: hydroxyzine Adverse Reaction (Mild, Verified 09/05/23 22:55) Rapid Heart Beat amoxicillin Adverse Reaction (Verified 09/05/23 22:55) Insomnia, Hyperactivity Home Medications: Docusate Sodium [Colace] 2 tab PO DAILY 05/16/23 [History] Ferrous Sulfate 325 mg [Feosol 325 mg] 1 tab PO BID 05/16/23 [History] polyethylene glycoL 3350 [Miralax Powder] 17 g PO DAILY PRN PRN 05/16/23 [History] Acetic Acid 5 drops DROPS TID 07/04/23 [History] Fluticasone Propionate [Flonase NASAL] 1 spray IH DAILY 07/04/23 [History] Senna 8.6 mg [Senokot 8.6 mg] 2 tab PO DAILY PRN 07/04/23 [History] Tamsulosin HCl 0.4 mg [Flomax 0.4 MG] 1 tab PO DAILY 07/04/23 [History] Hx Tetanus, Diphtheria Vaccination/Date Given: Yes Hx Influenza Vaccination/Date Given: No Hx Pneumococcal Vaccination/Date Given: No Immunizations Up to Date: Yes Travel Risk - International Travel Have you traveled outside of the country in past 3 weeks: No - Emerging Infectious Disease Are you exhibiting symptoms associated with any current EIDs: No - Review of Systems Constitutional: No Symptoms, No Fever, No Chills Eyes: No Symptoms Ears, Nose, & Throat: No Symptoms Respiratory: No Symptoms, No Cough, No Dyspnea Cardiac: No Symptoms, No Chest Pain, No Edema, No Syncope Abdominal/Gastrointestinal: No Symptoms, No Abdominal Pain, No Nausea, No Vomiting, No Diarrhea Genitourinary Symptoms: No Symptoms, No Dysuria Musculoskeletal: No Symptoms, No Back Pain, No Neck Pain Skin: No Symptoms, No Rash Neurological: No Symptoms, No Dizziness, No Focal Weakness, No Sensory Changes Psychological: No Symptoms Endocrine: No Symptoms Hematologic/Lymphatic: No Symptoms Immunological/Allergic: No Symptoms All Other Systems: Reviewed and Negative - Past Medical History Pertinent Past Medical History: Yes Neurological History: No Pertinent History ENT History: Other Cardiac History: No Pertinent History Respiratory History: No Pertinent History Endocrine Medical History: No Pertinent History Musculoskeletal History: No Pertinent History GI Medical History: GERD History: No Pertinent History Psycho-Social History: No Pertinent History Male Reproductive Disorders: Other Other Medical History: UTI'S. nasal polyps. constipation. dehydration. esophageal cancer- terminal - Past Surgical History Past Surgical History: Yes Neuro Surgical History: No Pertinent History Cardiac: No Pertinent History Respiratory: No Pertinent History Gastrointestinal: Hernia Repair Genitourinary: No Pertinent History Musculoskeletal: No Pertinent History Male Surgical History: No Pertinent History Other Surgical History: Nasal polyp removal. peg tube placement - Social History Smoking Status: Former smoker How long have you smoked: 65 years+ Exposure to second hand smoke: No Drug Use: none Patient Lives Alone: No - Social Determinants of Health Will the patient participate in the screening: Declined to provide - Nursing Vital Signs Nursing Vital Signs: Initial Vital Signs Temperature 98.1 F 09/05/23 22:42 Pulse Rate 56 L 09/05/23 22:42 Respiratory Rate 16 09/05/23 22:42 Blood Pressure 133/76 09/05/23 22:42 O2 Sat by Pulse Oximetry 98 09/05/23 22:42 Pain Scale Pain Intensity 9 - Physical Exam General Appearance: no apparent distress, alert Eye Exam: PERRL/EOMI, eyes nml inspection Ears, Nose, Throat Exam: normal ENT inspection, TMs normal, pharynx normal, moist mucous membranes Neck Exam: normal inspection, non-tender, supple, full range of motion Respiratory Exam: normal breath sounds, lungs clear, airway intact, No respiratory distress Cardiovascular Exam: regular rate/rhythm, normal heart sounds, normal peripheral pulses Gastrointestinal/Abdomen Exam: soft, normal bowel sounds, No tenderness, No mass Back Exam: normal inspection, normal range of motion, No CVA tenderness, No vertebral tenderness Extremity Exam: normal inspection, normal range of motion, pelvis stable Neurologic Exam: alert, oriented x 3, cooperative, normal mood/affect, sensation nml, No motor deficits Skin Exam: normal color, warm, dry, No rash Lymphatic Exam: No adenopathy SpO2 Interpretation: normal SpO2: 98 O2 Delivery: Room Air - Course Nursing assessment & vital signs reviewed: Yes Ordered Tests: Active Orders 24 hr Category Date Time Status CULTURE,URINE Stat Lab 09/05/23 23:02 Received UA W/RFX UR CULTURE Stat Lab 09/05/23 23:02 Completed Medication Summary Discontinued Medications Generic Name Dose Route Start Last Admin Trade Name Freq PRN Reason Stop Dose Admin Lidocaine HCl Confirm 09/05/23 22:34 Lidocaine Hcl 20 Mg/Ml Jelly Uro-Jet Administered 09/05/23 22:35 Dose 200 mg .ROUTE .[employer] [facility] Lab/Rad Data: Laboratory Results 09/05/23 Range/Units 23:02 Urine Color Yellow (Yellow) Urine Appearance Cloudy A (Clear) Urine pH 6.0 (4.6-8.0) Ur Specific [place] 1.025 (1.005-1.030) Urine Protein 100 A (Negative) Urine Glucose (UA) Negative (Negative) mg/dL Urine Ketones Negative (Negative) Urine Blood Large A (Negative) Urine Nitrite Positive A (Negative) Urine Bilirubin Negative (Negative) Urine Urobilinogen 1.0 A (0.2) mg/dL Ur Leukocyte Esterase Small A (Negative) U Hyaline Cast (Auto) 3-5 A (0-2) /LPF Urine Microscopic RBC >100 A (0-5) /HPF Urine Microscopic WBC 21-50 A (0-5) /HPF Ur Epithelial Cells None Seen (None Seen) /HPF Urine Bacteria Few A (None Seen) /HPF Urine Culture Reflexed YES (NO) - Progress Progress: improved Progress Note: Patient is an 82-year-old male presents to our ED for evaluation and treatment of urinary retention. Galindo catheter placed. 350 cc of concentrated urine obtained. Urinalysis reveals urinary tract infection. Patient received a dose of Levaquin in our ED. A prescription for ciprofloxacin forwarded to patient's pharmacy. No indication for further workup. Will discharge home. Patient agrees to follow-up with his primary care doctor within 48 hours for reevalu ation. Portions of this note were created with voice recognition technology. There may be grammatical, spelling, punctuation or sound alike errors Complexity problem addressed is moderate acute complicated. No critical care time. Complexity of data reviewed and analyzed is moderate. Test ordered chest reviewed results analyzed and correlated clinically with history and physical exam. Risk of complication and or risk of morbidity/mortality patient management is moderate. A prescription for ciprofloxacin forwarded to patient's pharmacy. Vital stable. Time spent to discharge patient approximately 20 minutes. Plan of care established for shared decision making. No social determinants of health present impede follow-up. Patient agrees to follow-up with his primary care doctor within 48 hours for reevaluation. 09/06/23 00:24 Counseled pt/family regarding: lab results, diagnosis, need for follow-up - Departure Departure Disposition: Home Clinical Impression: Urinary retention, UTI (urinary tract infection) Condition: Stable Critical Care Time: No Referrals: RODO JHA MD [Primary Care Provider] - Follow up/PCP as directed Additional Instructions: Discharge/Care Plan JOSE RAMONMARCELINO BUSTAMANTE was seen on 09/06/23 in the Emergency Room. The patient was counseled regarding Diagnosis,Lab results, Imaging studies, need for follow up and when to return to the Emergency Room. Prescriptions given: Discharge Note I have spoken with the patient and/or caregivers. I have explained the patient's condition, diagnosis and treatment plan based on the information available to me at this time. I have answered the patient's and/or caregiver's questions and addressed any concerns. The patient and/or caregivers have as good understanding of the patient's diagnosis, condition and treatment plan as can be expected at this point. The vital signs have been stable. The patient's condition is stable and appropriate for discharge from the emergency department. The patient will pursue further outpatient evaluation with the primary care physician or other designated or consulting physician as outlined in the discharge instructions. The patient and/or caregivers are agreeable to this plan of care and follow-up instructions have been explained in detail. The patient and/or caregivers have received these instruction. The patient/and or caregivers are aware that any significant change in condition or worsening of symptoms should prompt an immediate return to this or the closest emergency department or call 911. Prescriptions: Ciprofloxacin [Cipro 500 MG] 500 mg PO BID 7 Days #14 tablet
[2023-09-05 23:10] LABS: Appearance Cloudy (Clear); Bacteria Few /HPF (None Seen); Bilirubin Negative (Negative); Blood Large (Negative); Epithelial Cells None Seen /HPF (None Seen); Glucose, Urine Negative (Negative); Ketones Negative (Negative); Leukocyte Esterase Small (Negative); Nitrite Positive (Negative); Protein,Urine Dip 100 (Negative); RBC >100 /HPF (0-5); Specific Gravity 1.025 (1.005-1.030); WBC 21-50 /HPF (0-5)
[2023-09-05 23:12] LABS: ADD URINE CULTURE? YES (NO)
[2023-09-06] MEDS ORDERED: Levofloxacin 500 MG Tablet ONE (00:26)
[2023-09-06] MEDS: Levofloxacin 500 MG Tablet PO ONE (00:27)
== END 2023-09-06 01:21 | disposition home or self-care (01) ==
LOC: ED 22:03
DX: N39.0 Urinary tract infection, site not specified (principal); R33.9 Retention of urine, unspecified; Z79.899 Other long term (current) drug therapy
CPT/HCPCS: 51702; 81001; 87077; 87086; 87186; 99283; A9270-GY

== ENCOUNTER 2023-09-13 20:30 | Emergency (ER) | payer MEDICARE, BC ==
[2023-09-13 20:40] VITALS: RESP 18; TEMP 98.1; O2SAT 98
--- NOTE | 2023-09-13 20:59 | ERPHSYRPT ---
- History of Present Illness Time Seen by Provider: 09/13/23 20:55 Source: patient Exam Limitations: no limitations Patient Subjective Stated Complaint: had f/c taken out today at Dr. Jha's office and now I can't pee Triage Nursing Assessment: Pt brought back to ER via wheelchair. Pt saw Dr. Jha this morning and had him to take the f/c out to give him some relief. Pt has not voided since 11am when the galindo was removed. Pt wants f/c put back in and wants a leg bag and the big bag for home. Pt denies any pain at this time. Physician History: 82-year-old male history of active esophageal cancer presents to our ED for evaluation and treatment of urinary retention. Patient has known prostate disease. Patient requires Galindo catheter intermittently. Patient had his Gal[place] catheter removed today by his primary care doctor at approximately 11 AM. Patient has not urinated since. Patient feels distention in his suprapubic region. He otherwise feels well. He is currently on ciprofloxacin for a urinary tract infection. Patient voices no other complaints or concerns at this time. Portions of this note were created with voice recognition technology. There may be grammatical, spelling, punctuation or sound alike errors Timing/Duration: today Severity: moderate Modifying Factors: Improves With: nothing Associated Symptoms: denies symptoms Allergies/Adverse Reactions: hydroxyzine Adverse Reaction (Mild, Verified 09/13/23 20:47) Rapid Heart Beat amoxicillin Adverse Reaction (Verified 09/13/23 20:47) Insomnia, Hyperactivity Home Medications: Docusate Sodium [Colace] 2 tab PO DAILY 05/16/23 [History] polyethylene glycoL 3350 [Miralax Powder] 17 g PO DAILY PRN PRN 05/16/23 [History] Fluticasone Propionate [Flonase NASAL] 1 spray IH DAILY 07/04/23 [History] Senna 8.6 mg [Senokot 8.6 mg] 2 tab PO DAILY PRN 07/04/23 [History] Hydrocodone/Acetaminophen [Hydrocodone-Acetamin 5-325 mg] 1 tab PO BID 09/13/23 [History] Lorazepam 0.5 mg [Ativan 0.5 MG] 1 tab PO HS 09/13/23 [History] dexAMETHasone [Dexamethasone] 4 mg PO UD 09/13/23 [History] Hx Tetanus, Diphtheria Vaccination/Date Given: Yes Hx Influenza Vaccination/Date Given: No Hx Pneumococcal Vaccination/Date Given: No Travel Risk - International Travel Have you traveled outside of the country in past 3 weeks: No - Emerging Infectious Disease Are you exhibiting symptoms associated with any current EIDs: No - Review of Systems Constitutional: No Symptoms, No Fever, No Chills Eyes: No Symptoms Ears, Nose, & Throat: No Symptoms Respiratory: No Symptoms, No Cough, No Dyspnea Cardiac: No Symptoms, No Chest Pain, No Edema, No Syncope Abdominal/Gastrointestinal: No Symptoms, No Abdominal Pain, No Nausea, No Vom iting, No Diarrhea Genitourinary Symptoms: No Symptoms, No Dysuria Musculoskeletal: No Symptoms, No Back Pain, No Neck Pain Skin: No Symptoms, No Rash Neurological: No Symptoms, No Dizziness, No Focal Weakness, No Sensory Changes Psychological: No Symptoms Endocrine: No Symptoms Hematologic/Lymphatic: No Symptoms Immunological/Allergic: No Symptoms All Other Systems: Reviewed and Negative - Past Medical History Pertinent Past Medical History: Yes Neurological History: No Pertinent History ENT History: Other Cardiac History: No Pertinent History Respiratory History: No Pertinent History Endocrine Medical History: No Pertinent History Musculoskeletal History: No Pertinent History GI Medical History: GERD History: No Pertinent History Psycho-Social History: No Pertinent History Male Reproductive Disorders: Other Other Medical History: UTI'S. nasal polyps. constipation. dehydration. esophageal cancer- terminal - Past Surgical History Past Surgical History: Yes Neuro Surgical History: No Pertinent History Cardiac: No Pertinent History Respiratory: No Pertinent History Gastrointestinal: Hernia Repair Genitourinary: No Pertinent History Musculoskeletal: No Pertinent History Male Surgical History: No Pertinent History Other Surgical History: Nasal polyp removal. peg tube placement - Social History Smoking Status: Former smoker How long have you smoked: 65 years+ Exposure to second hand smoke: No Drug Use: none Patient Lives Alone: No - Social Determinants of Health Will the patient participate in the screening: Yes Do you worry about a steady place to live?: No Do you have any problems with any of the following?: No known problems In the past 12 months,have you had to go without utilities?: No Transportation Issues: No Has anyone in your support network made you feel unsafe?: No Have you or anyone in your house had to go without enough: No - Nursing Vital Signs Nursing Vital Signs: Initial Vital Signs Temperature 98.1 F 09/13/23 20:37 Pulse Rate 60 09/13/23 20:37 Respiratory Rate 18 09/13/23 20:37 Blood Pressure 146/74 09/13/23 20:37 O2 Sat by Pulse Oximetry 98 09/13/23 20:37 Pain Scale Pain Intensity 0 - Physical Exam General Appearance: no apparent distress, alert Eye Exam: PERRL/EOMI, eyes nml inspection Ears, Nose, Throat Exam: normal ENT inspection, moist mucous membranes Neck Exam: normal inspection, non-tender, supple, full range of motion Respiratory Exam: normal breath sounds, lungs clear, airway intact, No respiratory distress Cardiovascular Exam: regular rate/rhythm, normal heart sounds, normal peripheral pulses Gastrointestinal/Abdomen Exam: soft, normal bowel sounds, No tenderness, No mass Back Exam: normal inspection, normal range of motion, No CVA tenderness, No vertebral tenderness Extremity Exam: normal inspection, normal range of motion, pelvis stable Neurologic Exam: alert, oriented x 3, cooperative, normal mood/affect, sensation nml, No motor deficits Skin Exam: normal color, warm, dry, No rash Lymphatic Exam: No adenopathy SpO2 Interpretation: normal SpO2: 98 O2 Delivery: Room Air - Course Nursing assessment & vital signs reviewed: Yes - Progress Progress: improved Progress Note: 82-year-old male presents to our ED for urinary retention. Patient Galindo catheter was discontinued today at 11 AM. Since then patient has not urinated. Patient currently on Cipro for urinary tract infection. We replace patient's Galindo catheter. No indication for further workup at this time. Will discharge home. Patient agrees to follow-up with his primary care doctor within 48 hours for evaluation. Portions of this note were created with voice recognition technology. There may be grammatical, spelling, punctuation or sound alike errors Complexity of problem addressed is moderate acute complicated. No critical care time. Complex of data reviewed and analyzed is none. No specialized testing ordered. Diagnosis made based on history and physical exam. Risk of complication and or risk of morbidity/mortality patient management is moderate. Patient has a retained indwelling Galindo catheter to treat urinary retention. Vital stable. Time spent to discharge patient approximately 20 minutes. Plan of care established for shared decision making. No social determinants of heal th present impede follow-up. Portions of this note were created with voice recognition technology. There may be grammatical, spelling, punctuation or sound alike errors 09/13/23 20:57 Counseled pt/family regarding: diagnosis, need for follow-up - Departure Departure Disposition: Home Clinical Impression: Urinary retention Condition: Stable Critical Care Time: No Referrals: RODO JHA MD [Primary Care Provider] - Follow up/PCP as directed Additional Instructions: Discharge/Care Plan MARCELINO ALBRIGHT was seen on 09/13/23 in the Emergency Room. The patient was counseled regarding Diagnosis,Lab results, Imaging studies, need for follow up and when to return to the Emergency Room. Prescriptions given: Discharge Note I have spoken with the patient and/or caregivers. I have explained the patient's condition, diagnosis and treatment plan based on the information available to me at this time. I have answered the patient's and/or caregiver's questions and addressed any concerns. The patient and/or caregivers have as good understanding of the patient's diagnosis, condition and treatment plan as can be expected at this point. The vital signs have been stable. The patient's condition is stable and appropriate for discharge from the emergency department. The patient will pursue further outpatient evaluation with the primary care physician or other designated or consulting physician as outlined in the discharge instructions. The patient and/or caregivers are agreeable to this plan of care and follow-up instructions have been explained in detail. The patient and/or caregivers have received these instruction. The patient/and or caregivers are aware that any significant change in condition or worsening of symptoms should prompt an immediate return to this or the closest emergency department or call 911.
[2023-09-13 21:04] VITALS: BP 138/81; PULSE 64
== END 2023-09-13 21:13 | disposition home or self-care (01) ==
LOC: ED 20:30
DX: R33.9 Retention of urine, unspecified (principal); C15.9 Malignant neoplasm of esophagus, unspecified; Z79.891 Long term (current) use of opiate analgesic; Z79.52 Long term (current) use of systemic steroids; Z79.899 Other long term (current) drug therapy
CPT/HCPCS: 51702; 99283

== ENCOUNTER 2023-09-16 11:37 | Observation (INO) | payer MEDICARE, BC ==
--- NOTE | 2023-09-16 12:17 | ERPHSYRPT ---
- History of Present Illness Time Seen by Provider: 09/16/23 12:10 Source: patient, family Exam Limitations: no limitations Patient Subjective Stated Complaint: Pt c/o of low back pain, and right leg pain, and feeling "jittery/hyper" Triage Nursing Assessment: Pt brought to the eR by his , damaso petersonl, rates pain as 8/10, pt has terminal esophageal cancer and stopped his treatments this week, pt c/o of lower back pain and right ankle and knee pain and feeling jittery and hyper, no swelling of the right ankle, pt began taking oxycodone 5mg/5ml yesterday and took a dose last night and then this morning and so he wonders if he can't tolerate it, pt was on [place] 5/325 but it wasn't strong enough for him, pulses normal, skin pale and cool, hard of hearing Physician History: 82yo m pmhx aggressive esophageal cancer presents for low back and right leg pain. Pt reports the pain has been ongoing for several weeks, he was switched from [place] 5mg tablets to oxycodone 5mg liquid for pain control yesterday. Pt reports he has had 2 doses of the liquid oxy and has been anxious and jittery since, still having pain. Pt decided last week to discontinue treatment for his esophageal cancer, wants to get hospice set up but has not been able to yet. Pt is AxO x 3. Method of Injury: unknown Occurred: other (3-4 weeks) Quality: constant, aching, sharpness Severity of Pain-Max: moderate Severity of Pain-Current: moderate Lower Extremities Pain: knee: right, ankle: right Modifying Factors: Improves With: nothing Allergies/Adverse Reactions: hydroxyzine Adverse Reaction (Mild, Verified 09/13/23 20:47) Rapid Heart Beat amoxicillin Adverse Reaction (Verified 09/13/23 20:47) Insomnia, Hyperactivity Home Medications: Docusate Sodium [Colace] 2 tab PO DAILY 05/16/23 [History] Lorazepam 0.5 mg [Ativan 0.5 MG] 1 tab PO HS 09/13/23 [History] Hydrocodone/Acetaminophen [Hydrocodone-Acetamin 5-325 mg] 1 each PO Q12H 09/16/23 [History] Oxycodone HCl 5 mg PO Q4H 09/16/23 [History] Prochlorperazine Maleate 10 mg PO Q6H 09/16/23 [History] Hx Tetanus, Diphtheria Vaccination/Date Given: Yes Hx Influenza Vaccination/Date Given: No Hx Pneumococcal Vaccination/Date Given: No Travel Risk - International Travel Have you traveled outside of the country in past 3 weeks: No - Emerging Infectious Disease Are you exhibiting symptoms associated with any current EIDs: No - Review of Systems Constitutional: No Symptoms Respiratory: No Symptoms Cardiac: No Symptoms Abdominal/Gastrointestinal: No Symptoms Musculoskeletal: Arthralgias, Back Pain, Joint Pain - Past Medical History Pertinent Past Medical History: Yes Neurological History: No Pertinent History ENT History: Other Cardiac History: No Pertinent History Respiratory History: No Pertinent History Endocrine Medical History: No Pertinent History Musculoskeletal History: No Pertinent History GI Medical History: GERD History: No Pertinent History Psycho-Social History: No Pertinent History Male Reproductive Disorders: Other Other Medical History: UTI'S. nasal polyps. constipation. dehydration. esophageal cancer- terminal - Past Surgical History Past Surgical History: Yes Neuro Surgical History: No Pertinent History Cardiac: No Pertinent History Respiratory: No Pertinent History Gastrointestinal: Hernia Repair Genitourinary: No Pertinent History Musculoskeletal: No Pertinent History Male Surgical History: No Pertinent History Other Surgical History: Nasal polyp removal. peg tube placement - Social History Smoking Status: Former smoker How long have you smoked: 65 years+ Exposure to second hand smoke: No Drug Use: none Patient Lives Alone: No - Social Determinants of Health Will the patient participate in the screening: Yes Do you worry about a steady place to live?: No Do you have any problems with any of the following?: No known problems In the past 12 months,have you had to go without utilities?: No Transportation Issues: No Has anyone in your support network made you feel unsafe?: No Have you or anyone in your house had to go without enough: No - Nursing Vital Signs Nursing Vital Signs: Initial Vital Signs Temperature 97.6 F 09/16/23 11:48 Pulse Rate 87 09/16/23 11:48 Blood Pressure 120/78 09/16/23 11:48 O2 Sat by Pulse Oximetry 96 09/16/23 11:48 Pain Scale Pain Intensity 8 - Physical Exam General Appearance: no apparent distress, alert, anxiety Cardiovascular/Respiratory Exam: chest non-tender, normal breath sounds, regular rate/rhythm, no respiratory distress Gastrointestinal/Abdominal Exam: non-tender (G tube in place) Back Exam: normal inspection, No CVA tenderness, No vertebral tenderness Knees Exam: right knee: normal inspection, no evidence of injury, pain Ankle Exam: right ankle: normal inspection, normal range of motion, no evidence of injury, pain Neuro/Tendon Exam: normal sensation, normal motor functions Mental Status Exam: alert, oriented x 3, cooperative Skin Exam: normal color SpO2 Interpretation: normal SpO2: 96 O2 Delivery: Room Air Ordered Tests: Active Orders 24 hr Category Date Time Status LOWER LEG Stat Exams 09/16/23 12:16 Taken LUMBAR COMPLETE (MIN 4 VIEWS) Stat Exams 09/16/23 12:16 Taken Medication Summary Generic Name Dose Route Start Last Admin Trade Name Freq PRN Reason Stop Dose Admin Lorazepam 0.5 mg 09/16/23 12:17 09/16/23 12:40 Lorazepam 2 Mg/1 Ml 2 Mg Vial IV 10/16/23 12:16 0.5 mg PRN PRN Administration CIWA SCORE Discontinued Medications Generic Name Dose Route Start Last Admin Trade Name Freq PRN Reason Stop Dose Admin Morphine Sulfate 2 mg 09/16/23 12:31 09/16/23 12:41 Morphine Sulfate 2 Mg/Ml Inj IV 09/16/23 12:32 2 mg STAT ONE Administration Morphine Sulfate Confirm 09/16/23 12:38 Morphine Sulfate 2 Mg/Ml Inj Administered 09/16/23 12:39 Dose 2 mg .ROUTE .STK-MED ONE - Progress Progress: improved Progress Note: 09/16/23 13:42 discussed admission to obs for pain control w/ Dr Braswell who is willing to accept no acute fx on imaging discussed admission w/ pt and who are willing Will see patient in: hospital (observation) Counseled pt/family regarding: diagnosis, need for follow-up, rad results Medical Desision Making - Diagnostic Testing Diagnostic test were ordered, analyzed, and reviewed by me: Yes Radiological Interpretation: Interpreted by me - Risk of complications The pt has a high risk of morbidity or mortality based on: Decision regarding hospitilization or escalation of hosp level of care - Departure Departure Disposition: Observation Clinical Impression: Intractable back pain Back pain Qualifiers: Back pain location: low back pain Chronicity: chronic Back pain laterality: unspecified Sciatica presence: without sciatica Qualified Code(s): M54.50 - Low back pain, unspecified; G89.29 - Other chronic pain Condition: Stable Critical Care Time: No Referrals: RODO JHA MD [Primary Care Provider] - Follow up/PCP as directed
[2023-09-16] MEDS ORDERED: MORPHINE SULFATE 2 MG INJ ONE (12:38)
[2023-09-16] MEDS ORDERED: Ativan 2 MG/1 ML VIAL ONE (12:38)
[2023-09-16] MEDS: Ativan 2 MG/1 ML VIAL IV PRN (12:40)
[2023-09-16] MEDS: MORPHINE SULFATE 2 MG INJ IV ONE (12:41)
--- NOTE | 2023-09-16 14:10 | PCM.HP ---
History of Present Illness - Chief Complaint Chief Complaint: intractable pain Date: 09/16/23 History of Present Illness: is a 82 year old male with pmhx aggressive esophageal cancer presents for low back and right leg pain. Pt reports the pain has been ongoing for several weeks, he was switched from [place] 5mg tablets to oxycodone 5mg liquid for pain control yesterday. Pt reports he has had 2 doses of the liquid oxy and has been anxious and jittery since, still having pain. Pt decided last week to discontinue treatment for his esophageal cancer, wants to get hospice set up but has not been able to yet. Case management called by nursing to set up hospice. Pt lives in [place] and will need services from that area. PLan is to keep pt's pain controlled as well as nausea until he can be transferred home with hospice. - Review of Systems Constitutional: No Fever, No Chills Eyes: No Symptoms Ears, Nose, & Throat: No Symptoms Respiratory: No Cough, No Short Of Breath Cardiac: No Chest Pain, No Edema, No Syncope Abdominal/Gastrointestinal: No Abdominal Pain, No Nausea, No Vomiting, No Diarrhea Genitourinary Symptoms: No Dysuria Musculoskeletal: Back Pain, Other (right leg pain), No Neck Pain Skin: No Rash Neurological: No Dizziness, No Focal Weakness, No Sensory Changes Psychological: No Symptoms Endocrine: No Symptoms Hematologic/Lymphatic: No Symptoms Immunological/Allergic: No Symptoms Medications & Allergies Home Medications: Home Medication List Docusate Sodium [Colace] 2 tab PO DAILY 05/16/23 [History Confirmed 09/16/23] Lorazepam 0.5 mg [Ativan 0.5 MG] 1 tab PO HS 09/13/23 [History Confirmed 09/16/23] Hydrocodone/Acetaminophen [Hydrocodone-Acetamin 5-325 mg] 1 each PO Q12H 09/16/23 [History Confirmed 09/16/23] Oxycodone HCl 5 mg PO Q4H 09/16/23 [History Confirmed 09/16/23] Prochlorperazine Maleate 10 mg PO Q6H 09/16/23 [History Confirmed 09/16/23] Allergies/Adverse Reactions: Allergies Allergy/AdvReac Type Severity Reaction Status Date / Time hydroxyzine AdvReac Mild Rapid Verified 09/13/23 20:47 Heart Beat amoxicillin AdvReac Verified 09/13/23 20:47 - Past Medical History Past Medical History: Yes Neurological History: No Pertinent History ENT History: Other Cardiac History: No Pertinent History Respiratory History: No Pertinent History Endocrine Medical History: No Pertinent History Musculoskelatal History: No Pertinent History GI Medical History: GERD History: No Pertinent History Pyscho-Social History: No Pertinent History Male Reproductive Disorders: Other Comment: UTI'S. nasal polyps. constipation. dehydration. esophageal cancer- terminal - Past Surgical History Past Surgical History: Yes Neuro Surgical History: No Pertinent History Cardiac History: No Pertinent History Respiratory Surgery: No Pertinent History GI Surgical History: Hernia Repair Genitourinary Surgical Hx: No Pertinent History Musculskeletal Surgical Hx: No Pertinent History Male Surgical History: No Pertinent History Other Surgical History: Nasal polyp removal. peg tube placement - Social History Smoking Status: Former smoker How long have you smoked: 65 years+ Exposure to second hand smoke: No Alcohol: None Drug Use: none - Social Determinants of Health Will the patient participate in the screening: Yes Do you worry about a steady place to live?: No Do you have any problems with any of the following?: No known problems In the past 12 months,have you had to go without utilities?: No Have you or anyone in your house had to go without enough: No Transportation Issues: No Has anyone in your support network made you feel unsafe?: No Does the patient want assistance with any of the above?: No - Physical Exam Vital Signs: Vital Signs - 24 hr Temp Pulse BP BP Pulse Ox 09/16/23 13:45 96 09/16/23 13:00 106/72 97 09/16/23 12:36 119/73 97 09/16/23 11:48 97.6 F 87 120/78 96 General Appearance: no apparent distress, alert Neurologic Exam: alert, oriented x 3, cooperative, normal mood/affect, nml cerebellar function, nml station & gait, sensation nml, No motor deficits Eye Exam: PERRL/EOMI, eyes nml inspection Ears, Nose, Throat Exam: normal ENT inspection, TMs normal, pharynx normal, moist mucous membranes Neck Exam: normal inspection, non-tender, supple, full range of motion Respiratory Exam: normal breath sounds, lungs clear, No respiratory distress Cardiovascular Exam: regular rate/rhythm, normal heart sounds, normal peripheral pulses Gastrointestinal/Abdomen Exam: soft, normal bowel sounds, No tenderness, No mass Back Exam: normal inspection, normal range of motion, decreased range of motion (back), No CVA tenderness, No vertebral tenderness Extremity Exam: normal inspection, normal range of motion, pelvis stable, limited range of motion (back and right leg) Skin Exam: normal color, warm, dry, No rash Lymphatic Exam: No adenopathy Results - Radiology Impressions Radiology Exams & Impressions: Radiology Procedures Category Date Time Status LOWER LEG Stat Exams 09/16/23 12:16 Taken LUMBAR COMPLETE (MIN 4 VIEWS) Stat Exams 09/16/23 12:16 Taken Assessment/Plan (1) Esophageal cancer Current Visit: Yes Status: Acute Assessment & Plan: - with mets per pt - would like to go home with hospice - IV narcotic pain meds - IV meds for nausea - Morphine, ativan, zofran - resume home tube feedings and pleasure feedings (2) Hospice care Current Visit: Yes Status: Acute Assessment & Plan: - Case management called [facility] nurse to set up care - Pt lives in [place], this adds complexity to the situation (3) Intractable back pain Current Visit: Yes Status: Acute Assessment & Plan: - 2:2 esophageal cancer with mets - see plan above for esophageal cancer - Lumbar XR pending Code(s): M54.9 - DORSALGIA, UNSPECIFIED (4) Right leg pain Current Visit: Yes Status: Acute Assessment & Plan: - 2:2 esophageal cancer with mets - see plan above for esophageal cancer - tib/fib XR pending Code(s): M79.604 - PAIN IN RIGHT LEG Telemedicine Encounter - Telemedicine Encounter Telemedicine Encounter: "The entirety of this encounter was performed via Telemedicine" This visit was performed using real-time audio and video connection between my location and thepatients locationwith the assistance of a surrogateat the patients location. Written or verbal consent was obtained from the patient/guardian to perform this visit [facility] technology. Any patient questions regarding the telemedicine interaction were answered.
[2023-09-16] MEDS ORDERED: OXYCODONE HCL PO SCH (14:15)
[2023-09-16] MEDS ORDERED: Zofran 4 MG/2 ML VIAL IV PRN (14:18)
[2023-09-16] MEDS: MORPHINE SULFATE 2 MG INJ IV PRN (16:46)
--- NOTE | 2023-09-16 20:34 | XRAY ---
Indication: Pain. Comparison: None 2 view right lower leg demonstrates osteopenia, tiny posterior/plantar heel spurs, and mild scattered vascular calcifications. No other bony, articular, or soft tissue abnormalities.
--- NOTE | 2023-09-16 20:34 | XRAY ---
Indication: Pain. Comparison: None 5 view lumbar spine demonstrates 5 lumbar segments with osteopenia, mild dextroscoliosis centered at L4, mild multilevel thoracolumbar degenerative endplate spurring, and moderate diffuse fecal stasis. 1 cm well-circumscribed calcification lateral to thoracolumbar junction probable ingested medication/pill. Impression: Nonacute lumbar spine with chronic features. Incidental fecal stasis.
[2023-09-16] MEDS: Ativan 0.5 MG PO SCH (21:39)
[2023-09-16] MEDS: NORCO 5/325 MG PO SCH (21:39)
--- NOTE | 2023-09-17 07:36 | PCM.NOTE ---
Date and Time: 09/17/23 0733 Subjective Assessment: 09/16/23 is a 82 year old male with pmhx aggressive esophageal cancer presents for low back and right leg pain. Pt reports the pain has been ongoing for several weeks, he was switched from Geraldine 5mg tablets to oxycodone 5mg liquid for pain control yesterday. Pt reports he has had 2 doses of the liquid oxy and has been anxious and jittery since, still having pain. Pt decided last week to discontinue treatment for his esophageal cancer with mets, wants to get hospice set up but has not been able to yet. Case management called by nursing to set up hospice. Pt lives in [place] and will need services from that area. Plan is to keep pt's pain controlled as well as nausea until he can be transferred home with hospice. 09/17/23 Pt resting in bed. Plan is for pt to d/c tomorrow with Hospice with [facility]. Things will not be set up until then. Per nursing staff they will be at his home at 1pm tomorrow. He is comfortable and pain well controlled. Will d/c first thing in the morning. He denies CP, SOB, abd. pain, N/V/D. - Review of Systems Constitutional: No Fever, No Chills Eyes: No Symptoms Ears, Nose, & Throat: No Symptoms Respiratory: No Cough, No Short Of Breath Cardiac: No Chest Pain, No Edema, No Syncope Abdominal/Gastrointestinal: No Abdominal Pain, No Nausea, No Vomiting, No Diarrhea Genitourinary Symptoms: No Dysuria Musculoskeletal: Arthralgias (left thigh pain), No Back Pain, No Neck Pain Skin: No Rash Neurological: No Dizziness, No Focal Weakness, No Sensory Changes Psychological: No Symptoms, Anxiety Endocrine: No Symptoms Hematologic/Lymphatic: No Symptoms Immunological/Allergic: No Symptoms Objective Exam General Appearance: no apparent distress, alert, anxiety, thin Neurologic Exam: alert, oriented x 3, cooperative, normal mood/affect, nml cerebellar function, sensation nml, No motor deficits Skin Exam: normal color, warm, dry Eye Exam: PERRL, EOMI, eyes nml inspection Ears, Nose, Throat Exam: normal ENT inspection, pharynx normal, moist mucous mem branes Neck Exam: normal inspection, non-tender, supple, full range of motion Respiratory Exam: normal breath sounds, lungs clear, No respiratory distress Cardiovascular Exam: regular rate/rhythm, normal heart sounds Gastrointestinal/Abdomen Exam: soft, No tenderness, No mass Extremity Exam: normal inspection, normal range of motion Back Exam: normal inspection, normal range of motion, No CVA tenderness, No vertebral tenderness Male Genitalia Exam: deferred Rectal Exam: deferred Objective Data Vital Signs: Vital Signs - 24 hr Temp Pulse Resp BP BP Pulse Ox 09/17/23 07:16 97.9 F 79 16 119/58 95 09/17/23 05:00 97.5 F 79 18 129/64 93 L 09/16/23 21:54 98.2 F 66 18 127/63 94 L 09/16/23 20:00 18 09/16/23 13:57 97.1 F 74 12 122/72 94 L 09/16/23 13:45 96 09/16/23 13:00 106/72 97 09/16/23 12:36 119/73 97 09/16/23 11:48 97.6 F 87 120/78 96 Pain Assessment - Last Documented Pain Intensity 6 Pain Scale Used 0-10 Pain Scale Intake and Output: Intake & Output 09/14/23 09/15/23 09/16/23 09/17/23 11:59 11:59 11:59 11:59 Intake Total 310 Output Total 450 Balance -140 Weight 66.9 kg 64 kg Radiology Exams: Radiology Procedures Category Date Time Status LOWER LEG Stat Exams 09/16/23 12:16 Completed LUMBAR COMPLETE (MIN 4 VIEWS) Stat Exams 09/16/23 12:16 Completed Assessment/Plan (1) Esophageal cancer Current Visit: Yes Status: Acute (2) Hospice care Current Visit: Yes Status: Acute (3) Intractable back pain Current Visit: Yes Status: Acute Code(s): M54.9 - DORSALGIA, UNSPECIFIED (4) Right leg pain Current Visit: Yes Status: Acute Assessment & Plan: (1) Esophageal cancer Current Visit: Yes Status: Acute Assessment & Plan: - with mets per pt - would like to go home with hospice - IV narcotic pain meds - IV meds for nausea - Morphine, ativan, zofran - resume home tube feedings and pleasure feedings (2) Hospice care Current Visit: Yes Status: Acute Assessment & Plan: - Case management called iron installer nurse to set up care - Pt lives in [place], this adds complexity to the situation - Plan is to d/c tomorrow in am as hospice will be at home at 1pm [place] time. (3) Intractable back pain Current Visit: Yes Status: Acute Assessment & Plan: - 2:2 esophageal cancer with mets - see plan above for esophageal cancer - Lumbar XR: Impression: Nonacute lumbar spine with chronic features. Incidental fecal stasis. Code(s): M54.9 - DORSALGIA, UNSPECIFIED (4) Right leg pain Current Visit: Yes Status: Acute Assessment & Plan: - 2:2 esophageal cancer with mets - see plan above for esophageal cancer - tib/fib XR: 2 view right lower leg demonstrates osteopenia, tiny posterior/plantar heel spurs, and mild scattered vascular calcifications. No other bony, articular, or soft tissue abnormalities. Code(s): M79.604 - PAIN IN RIGHT LEG Code(s): M79.604 - PAIN IN RIGHT LEG (5) Constipation Current Visit: Yes Status: Acute Assessment & Plan: - likely 2:2 narcotic pain meds - as seen on lumbar XR - Docusate daily - consider other meds if sxs do not improve. Code(s): K59.00 - CONSTIPATION, UNSPECIFIED
[2023-09-17] MEDS: Docusate Sodium 100 MG PO SCH (09:43)
[2023-09-17 19:52] VITALS: RESP 18
[2023-09-18 01:42] VITALS: O2SAT 94
--- NOTE | 2023-09-18 05:22 | PCM.DS ---
Discharge Summary Date of Admission: 09/16/23 13:55 Date of Discharge: 09/18/23 Admitting Physician: SYLVESTER MATHIS MD Primary Care Provider: RODO JHA Allergies Allergies hydroxyzine Adverse Reaction (Mild, Verified 09/16/23 14:38) Rapid Heart Beat amoxicillin Adverse Reaction (Verified 09/16/23 14:38) Insomnia, Hyperactivity Hospital Summary - Hospital Course Hospital Course: HPI: Mr. Luna is an 82 year old male with a PMHX of esophageal cancer with metastasis and is opting for hospice (treatment ceased a week ago) admitted 09/16/23 for a several week history of uncontrolled pain to his back and right leg. He had recently been started on [place] and oxycodone outpatient for which patient reports made him feel jittery and anxious. Pain has been controlled during hospitalization with morphine/Ativan. Lumbar /tib/fib XR with no acute findings. Patient has been set up with [facility]. The plan is for intake today at 1p.m. ([facility]). Patient is agreeable to plan and ready for discharge this morning. Hospice to manage medications at intake. Discharge Note New Medications: To be managed by Hospice Latest Assessment & Plan (1) Esophageal cancer Current Visit: Yes Status: Acute Assessment & Plan: - with mets per pt - would like to go home with hospice - IV narcotic pain meds - IV meds for nausea - Morphine, ativan, zofran - resume home tube feedings and pleasure feedings (2) Hospice care Current Visit: Yes Status: Acute Assessment & Plan: - Case management called computer education professor nurse to set up care - Pt lives in [place], this adds complexity to the situation - Plan is to d/c tomorrow in am as hospice will be at home at 1pm [facility]. (3) Intractable back pain Current Visit: Yes Status: Acute Assessment & Plan: - 2:2 esophageal cancer with mets - see plan above for esophageal cancer - Lumbar XR: Impression: Nonacute lumbar spine with chronic features. Incidental fecal stasis. Code(s): M54.9 - DORSALGIA, UNSPECIFIED (4) Right leg pain Current Visit: Yes Status: Acute Assessment & Plan: - 2:2 esophageal cancer with mets - see plan above for esophageal cancer - tib/fib XR: 2 view right lower leg demonstrates osteopenia, tiny posterior/plantar heel spurs, and mild scattered vascular calcifications. No other bony, articular, or soft tissue abnormalities. Code(s): M79.604 - PAIN IN RIGHT LEG Code(s): M79.604 - PAIN IN RIGHT LEG (5) Constipation Current Visit: Yes Status: Acute Assessment & Plan: - likely 2:2 narcotic pain meds - as seen on lumbar XR - Docusate daily - consider other meds if sxs do not improve. Code(s): K59.00 - CONSTIPATION, UNSPECIFIED I spent 35 minutes [id number] with the patient on the day of discharge performing discharge exam, discussing hospital stay and discharge instructions with patient and caregivers, preparation of discharge records, prescriptions & referral forms and addressing any questions/concerns the patient had as documented above. - Vitals & Intake/Output Vital Signs: Vital Signs Temperature 97.8 F 09/18/23 01:00 Pulse Rate 65 09/18/23 01:00 Respiratory Rate 18 09/18/23 01:00 Blood Pressure 118/58 09/18/23 01:00 O2 Sat by Pulse Oximetry 94 L 09/18/23 01:00 Intake & Output: Intake & Output 09/15/23 09/16/23 09/17/23 09/18/23 11:59 11:59 11:59 11:59 Intake Total 630 1401 Output Total 725 400 Balance -95 1001 Weight 66.9 kg 64 kg - Radiology Exams Ordered Rad Exams-Entire Visit: Radiology Procedures Category Date Time Status LOWER LEG Stat Exams 09/16/23 12:16 Completed LUMBAR COMPLETE (MIN 4 VIEWS) Stat Exams 09/16/23 12:16 Completed Discharge Exam General Appearance: no apparent distress, cachetic Neurologic Exam: alert, oriented x 3, cooperative Eye Exam: PERRL Ears, Nose, Throat Exam: normal ENT inspection Neck Exam: normal inspection Respiratory Exam: diminished breath sounds Cardiovascular Exam: regular rate/rhythm, normal heart sounds Gastrointestinal/Abdomen Exam: soft, normal bowel sounds Male Genitalia Exam: deferred Rectal Exam: deferred Back Exam: normal inspection Extremity Exam: normal inspection Skin Exam: normal color Wound Assessment: Skin/Wound Assessment Wound/Incision Assessment Start: 09/17/23 10:04 Text: Status: Active Freq: Q6H Protocol: Document 09/18/23 02:00 KD (Rec: 09/18/23 02:13 KD [id number]) Wound/Incision Assessment Left Buttock Wound Assessment Shift Assessment Wound Type Pressure Ulcer Wound Stage Stage I General Appearance Open to air,Reddened Comment 2 Non-blanchable reddened areas on left buttock, barrier cream PRN with Q2H turning encouraged. - remains true Posterior Medial Sacrum Wound Assessment Shift Assessment Wound Type Pressure Ulcer Wound Stage Stage I General Appearance Open to air,Reddened Comment Non-blanchable redness on sacrum, barrier cream PRN with Q2H turning encouraged.- remains true Wound Photo Photo Taken Yes Date: 09/17/23 Time: 10:00 Final Diagnosis/Problem List - Final Discharge Diagnosis/Problem (1) Esophageal cancer Current Visit: Yes Status: Chronic (2) Constipation Current Visit: Yes Status: Chronic Code(s): K59.00 - CONSTIPATION, UNSPECIFIED (3) Hospice care Current Visit: Yes Status: Chronic (4) Intractable back pain Current Visit: Yes Status: Chronic Code(s): M54.9 - DORSALGIA, UNSPECIFIED (5) Right leg pain Current Visit: Yes Status: Chronic Code(s): M79.604 - PAIN IN RIGHT LEG - Discharge Discharge Date: 09/18/23 (Home with [facility]) Condition: Stable Prescriptions: Continue Docusate Sodium [Colace] 2 tab PO DAILY PRN PRN PRN Reason: Constipation Lorazepam 0.5 mg [Ativan 0.5 MG] 0.5 mg PO HS Hydrocodone/Acetaminophen [Hydrocodone-Acetamin 5-325 mg] 1 each PO Q12H Prochlorperazine Maleate 10 mg PO Q6HPRN PRN PRN Reason: Nausea Oxycodone HCl 5 mg PO Q4HPRN PRN PRN Reason: Pain Follow up with: RODO JHA MD [Primary Care Provider] -
[2023-09-18 07:30] VITALS: BP 100/56; PULSE 74; TEMP 97.6
[2023-09-18] MEDS: Ativan 2 MG/1 ML VIAL IV ONE (08:44)
== END 2023-09-18 10:49 | disposition hospice, home (50) ==
LOC: ED 11:37 → MED SURG 13:55
PROVIDERS: ADMIT Internal Medicine; ATTEND Internal Medicine
DX: C15.9 Malignant neoplasm of esophagus, unspecified (principal); K59.00 Constipation, unspecified; Z51.5 Encounter for palliative care; M54.9 Dorsalgia, unspecified; M79.604 Pain in right leg; Z79.899 Other long term (current) drug therapy
CPT/HCPCS: 72110; 73590; 96374; 96375; 99283; G0378; J1642; J2060; J2270; Q3014; A9270-GY